=== PATIENT | female | born 1985 | race Caucasian/White ===

== ENCOUNTER 2020-07-24 15:49 | Emergency (ER) | payer OTHER ==
[2020-07-24] MEDS ORDERED: KEFLEX 500 MG PO ONE (16:19)
--- NOTE | 2020-07-24 16:21 | ERPHSYRPT ---
- History of Present Illness Time Seen by Provider: 07/24/20 16:10 Source: patient Exam Limitations: no limitations Patient Subjective Stated Complaint: rash Triage Nursing Assessment: Patient ambulated back to ED and transferred self to bed. Patient A+O X3. Patient's skin pink, warm and dry. Patient complains of an area to left ear that appeared two weeks ago that has spead to her face. Patient has dried cluster of discoloration to outer left ear. Patient also has small blister like areas to nose and underneath mouth. Patient complains of intermittent, aching pain 3/10. Physician History: 35 years old female presented in the ER with chief complaint of rash left ear lobule/external ear and around perioral area on the right. Patient reports it started as a small bump on the left ear and gradually increasing in size, watery discharge discharge upon removing the scab with some itching and burning sensation. She is also having some sharp pain in the left ear canal but no discharge from the ear itself. No sore throat/fever or chills reported. Timing/Duration: week(s) (2), gradual onset, worse Quality: burning, itchy Severity: moderate Location: face Possible Causes: no cause identified Associated Symptoms: rash, No fever, No headache, No nasal congestion, No sore throat, No swelling/mass/lumps Allergies/Adverse Reactions: No Known Drug Allergies Allergy (Unverified 07/24/20 15:55) Hx Tetanus, Diphtheria Vaccination/Date Given: Yes Hx Influenza Vaccination/Date Given: No Hx Pneumococcal Vaccination/Date Given: No Immunizations Up to Date: Yes Travel Risk - International Travel Have you traveled outside of the country in past 3 weeks: No - Coronavirus Screening Are you exhibiting any of the following symptoms?: No Close contact with a COVID-19 positive Pt in past 14-21 Days: No - Review of Systems Constitutional: No Symptoms Eyes: No Symptoms Ears, Nose, & Throat: Ear Pain Respiratory: No Symptoms Cardiac: No Symptoms Abdominal/Gastrointestinal: No Symptoms Musculoskeletal: No Symptoms Skin: Rash Neurological: No Symptoms Psychological: No Symptoms Endocrine: No Symptoms Hematologic/Lymphatic: No Symptoms Immunological/Allergic: No Symptoms - Past Medical History Pertinent Past Medical History: Yes Neurological History: No Pertinent History ENT History: No Pertinent History Cardiac History: No Pertinent History Respiratory History: No Pertinent History Endocrine Medical History: No Pertinent History Musculoskeletal History: No Pertinent History GI Medical History: No Pertinent History History: No Pertinent History Psycho-Social History: Anxiety, Depression Female Reproductive Disorders: No Pertinent History - Past Surgical History Past Surgical History: Yes Neuro Surgical History: No Pertinent History Cardiac: No Pertinent History Respiratory: No Pertinent History Gastrointestinal: No Pertinent History Genitourinary: No Pertinent History Musculoskeletal: No Pertinent History Female Surgical History: Tubal Ligation - Social History Smoking Status: Current every day smoker How long have you smoked: 18 Exposure to second hand smoke: No Drug Use: none Patient Lives Alone: No - Female History Hx Now: No - Nursing Vital Signs Nursing Vital Signs: Initial Vital Signs Temperature 98.0 F 07/24/20 15:57 Pulse Rate 72 07/24/20 15:57 Respiratory Rate 18 07/24/20 15:57 Blood Pressure 143/99 07/24/20 15:57 O2 Sat by Pulse Oximetry 99 07/24/20 15:57 Pain Scale Pain Intensity 3 - Physical Exam General Appearance: no apparent distress, alert Eye Exam: PERRL/EOMI, eyes nml inspection Ears, Nose, Throat Exam: TMs normal, pharynx normal, other (Left ear lobule area of erythema/erosion/connolly crusting. Also has areas around right perioral area especially on the lower lip.) Neck Exam: normal inspection, non-tender, supple, full range of motion Respiratory Exam: normal breath sounds, lungs clear Cardiovascular Exam: regular rate/rhythm, normal heart sounds Neurologic Exam: alert, oriented x 3 Skin Exam: normal color SpO2 Interpretation: normal SpO2: 95 O2 Delivery: Room Air - Course Nursing assessment & vital signs reviewed: Yes Ordered Tests: Medication Summary Discontinued Medications Generic Name Dose Route Start Last Admin Trade Name Trevor PRN Reason Stop Dose Admin Cephalexin HCl 500 mg 07/24/20 16:19 07/24/20 16:24 Keflex 500 Mg PO 07/24/20 16:20 500 mg STAT ONE Administration Cephalexin HCl Confirm 07/24/20 16:24 Keflex 500 Mg Administered 07/24/20 16:25 Dose 500 mg .ROUTE .STK-MED ONE Mupirocin 22 gm 07/24/20 22:00 07/24/20 16:37 Bactroban Ointment TP 08/23/20 21:59 22 gm TID MIKA Administration Mupirocin Confirm 07/24/20 16:30 Bactroban Ointment Administered 07/24/20 16:31 Dose 22 gm .ROUTE .STK-MED ONE - Progress Progress: unchanged Progress Note: 07/24/20 16:45 I believe patient has impetigo, will start on topical and oral antibiotics. Outpatient follow-up. Counseled pt/family regarding: diagnosis, need for follow-up - Departure Departure Disposition: Home Clinical Impression: Impetigo Condition: Stable Critical Care Time: No Referrals: ABELARDO KOCH [Primary Care Provider] - Follow Up with PCP/3 days Instructions: Impetigo (DC) Additional Instructions: Keep it clean. Apply topical antibiotic 3 times a day for 5 days. Follow-up with your primary care physician for reevaluation. Return to ED or for any worsening Prescriptions: Cephalexin Mh 500 mg [Keflex 500 mg] 500 mg PO QID #19 capsule
[2020-07-24] MEDS ORDERED: KEFLEX 500 MG ONE (16:24)
[2020-07-24] MEDS ORDERED: Bactroban OINTMENT ONE (16:30)
[2020-07-24 16:39] VITALS: BP 129/92; PULSE 60
[2020-07-24 16:45] VITALS: O2SAT 95
[2020-07-24] MEDS ORDERED: Bactroban OINTMENT TP SCH (22:00)
== END 2020-07-24 16:38 | disposition home or self-care (01) ==
LOC: ED 15:49
DX: L01.00 Impetigo, unspecified (principal)
CPT/HCPCS: 99283; A9270-GY

== ENCOUNTER 2022-05-30 18:53 | Emergency (ER) | payer OTHER ==
[2022-05-30 19:18] VITALS: O2SAT 94
[2022-05-30] MEDS ORDERED: CORTISPORIN EAR DROPS 10 ML SUSPENSION OT ONE ×2 (19:27→19:56)
--- NOTE | 2022-05-30 19:47 | ERPHSYRPT ---
- History of Present Illness Time Seen by Provider: 05/30/22 19:37 Source: patient Exam Limitations: no limitations Patient Subjective Stated Complaint: pt states three days ago she felt a soreness in left ear and its progressed to involving the entire neck on left side. pt states it has become swollen and sore. rates pain in neck at 7/10 Triage Nursing Assessment: pt is alert and oriented, redness and swelling noted in and around left ear, and swelling around mandible and upper neck on left side. pt states pain is 7/10. feels full in neck but no trouble breathing at this time. Physician History: Patient is a 36-year-old female who 3 days ago noticed pain in her left ear over the next 72 hours ears swollen completely shut she cannot hear she also has swelling onto the face and enlargement of lymph nodes in the left side of the neck. Timing/Duration: gradual onset Severity: moderate ENT Location: ear (L) Prearrival Treatment: no prearrival treatment Associated Symptoms: ear pain (L), jaw pain, swollen glands Allergies/Adverse Reactions: No Known Drug Allergies Allergy (Unverified 07/24/20 15:55) Hx Tetanus, Diphtheria Vaccination/Date Given: Yes Hx Influenza Vaccination/Date Given: No Hx Pneumococcal Vaccination/Date Given: No Travel Risk - International Travel Have you traveled outside of the country in past 3 weeks: No - Coronavirus Screening Are you exhibiting any of the following symptoms?: No Close contact with a COVID-19 positive Pt in past 14-21 Days: No - Vaccine Status Have you recieved a Covid-19 vaccination: No - Review of Systems Constitutional: No Fever, No Chills Eyes: No Symptoms Ears, Nose, & Throat: Ear Pain Respiratory: No Cough, No Dyspnea Cardiac: No Chest Pain, No Edema, No Syncope Abdominal/Gastrointestinal: No Abdominal Pain, No Nausea, No Vomiting, No Diarrhea Genitourinary Symptoms: No Dysuria Musculoskeletal: No Back Pain, No Neck Pain Skin: No Rash Neurological: No Dizziness, No Focal Weakness, No Sensory Changes Psychological: No Symptoms Endocrine: No Symptoms All Other Systems: Reviewed and Negative - Past Medical History Pertinent Past Medical History: Yes Neurological History: No Pertinent History ENT History: No Pertinent History Cardiac History: No Pertinent History Respiratory History: No Pertinent History Endocrine Medical History: No Pertinent History Musculoskeletal History: No Pertinent History GI Medical History: No Pertinent History History: No Pertinent History Psycho-Social History: Anxiety, Depression Female Reproductive Disorders: No Pertinent History - Past Surgical History Past Surgical History: Yes Neuro Surgical History: No Pertinent History Cardiac: No Pertinent History Respiratory: No Pertinent History Gastrointestinal: No Pertinent History Genitourinary: No Pertinent History Musculoskeletal: No Pertinent History Female Surgical History: Tubal Ligation - Social History Smoking Status: Current every day smoker How long have you smoked: 18 Exposure to second hand smoke: No Drug Use: none Patient Lives Alone: No - Female History Hx Last Menstrual Period: 05/23/22 Hx Now: No - Nursing Vital Signs Nursing Vital Signs: Initial Vital Signs Temperature 97.7 F 05/30/22 19:07 Pulse Rate 81 05/30/22 19:07 Respiratory Rate 18 05/30/22 19:07 Blood Pressure 149/85 05/30/22 19:07 O2 Sat by Pulse Oximetry 94 L 05/30/22 19:07 Pain Scale Pain Intensity 7 - Physical Exam General Appearance: mild distress Eye Exam: bilateral eye: PERRL, EOMI Ear Exam: left ear: discharge, swelling, tenderness, other (Left ear is remarkable for swelling of the external ear the canal is swollen nearly shut and there is discharge from the ear.) Nasal Exam: normal inspection Throat Exam: pharynx normal, moist mucus membranes, No tonsillar exudate Neck Exam: lymphadenopathy (L) Cardiovascular/Respiratory Exam: normal breath sounds, regular rate/rhythm Abdominal Exam: non-tender, soft Neurologic Exam: alert, oriented x 3, sensation nml, No motor deficits Skin Exam: normal color, warm, dry SpO2 Interpretation: normal SpO2: 94 O2 Delivery: Room Air - Course Nursing assessment & vital signs reviewed: Yes Ordered Tests: Medication Summary Discontinued Medications Generic Name Dose Route Start Last Admin Trade Name Freq PRN Reason Stop Dose Admin Neomycin/Polymyxin/Hydrocortisone Confirm 05/30/22 19:27 Neomy Sulf/Polymyx B Sulf/Hc 10 Ml Otic Suspension Administered 05/30/22 19:28 Dose 10 ml OT .STK-MED ONE - Progress Progress: unchanged Progress Note: 05/30/22 19:39 A wick was inserted into the left ear with minimal difficulty - Departure Departure Disposition: Home Clinical Impression: Otitis externa of left ear Condition: Stable Critical Care Time: No Referrals: ABELARDO KOCH NP [Primary Care Provider] - Follow up/PCP as directed Prescriptions: Hydrocodone/Acetaminophen [Hydrocodone-Acetamin 5-325 mg] 1 tab PO Q6HPRN PRN 3 Days #12 tablet MDD 4 PRN Reason: Pain Amox Tr/Potass Clav. 875 mg [Augmentin 875-125 Tablet] 875 mg PO BID 10 Days #20 tablet Jh/Baci/Poly/Hc Ear Susp [Cortisporin Ear Drops 10 ml Suspension] 10 ml OT TID #10 ml Prednisone 10 mg [Deltasone 10 mg] 40 mg PO Q12H 1 Days #8 tablet
[2022-05-30 20:09] VITALS: BP 133/100; PULSE 87
== END 2022-05-30 20:08 | disposition home or self-care (01) ==
LOC: ED 18:53
DX: H60.92 Unspecified otitis externa, left ear (principal); H92.02 Otalgia, left ear; R59.0 Localized enlarged lymph nodes; Z72.0 Tobacco use; Z79.891 Long term (current) use of opiate analgesic; Z79.52 Long term (current) use of systemic steroids; Z28.310 Unvaccinated for COVID-19
CPT/HCPCS: 99281; A9270-GY

== ENCOUNTER 2022-08-03 16:59 | Emergency (ER) | payer OTHER ==
[2022-08-03 18:06] VITALS: PULSE 83; O2SAT 98
[2022-08-03 18:42] LABS: Absolute Neutrophil Ct (ANC) 6.21 x10^3/uL (1.4-6.9); Basophil (Absolute #) 0.06 x10^3/uL (0-0.4); Eosinophil (Absolute #) 0.59 x10^3/uL (0-0.5); Hematocrit 31.3 % (35-47); Hemoglobin 9.3 g/dL (12.0-16.0); Lymphocyte (Absolute #) 2.26 x10^3/uL (1.0-4.6); Lymphocytes % 22.8 % (24.0-44.0); Mean Cell Volume 71.3 fL (78-100); Mean Corpuscular Hemoglobin 21.2 pg (26-32); Mean Corpuscular Hgb Concent. 29.7 g/dL (32-36); Mean Platelet Volume 8.7 fL (7.5-11.0); Monocytes % 7.1 % (0.0-12.0); Neutrophil % 62.7 % (36.0-66.0); Platelet Count 454 x10^3/uL (150-450); Red Blood Count 4.39 x10^6/uL (4.1-5.4); White Blood Count 9.9 x10^3/uL (4.0-10.5)
[2022-08-03 18:56] LABS: ALBUMIN 4.3 g/dL (3.5-5.0); ALKALINE PHOSPHATASE 73 U/L (38-126); ANION GAP 10.8 MEQ/L (5-15); BLOOD UREA NITROGEN 13 mg/dL (7-17); CHLORIDE 101 mmol/L (98-107); Calcium 9.2 mg/dL (8.4-10.2); Carbon Dioxide 28 mmol/L (22-30); Creatinine 1 0.54 mg/dL (0.52-1.04); EST GLOMERULAR FILTRATION RATE > 60.0 ML/MIN; Glucose 121 mg/dL (74-106); Potassium 3.3 mmol/L (3.5-5.1); SGOT/AST 36 U/L (14-36); SGPT/ALT 62 U/L (0-35); SODIUM 137 mmol/L (137-145); Total Protein 7.5 g/dL (6.3-8.2)
--- NOTE | 2022-08-03 19:15 | ERPHSYRPT ---
- History of Present Illness Time Seen by Provider: 08/03/22 18:00 Exam Limitations: no limitations Patient Subjective Stated Complaint: Pt has been seen several times in the past 4 months for a "rash" outside of her left ear and was told it was swimmers ear and then went to [facility] care and they did a culture and they think they may not have went deep enough and it came back as "normal sam" and so they just gave her some cream, pt is itching like crazy and it has now gotten to the right ear and she thinks it is spreading to her left underarm Triage Nursing Assessment: Pt brought to the ER by her , rates pain and itching as 6/10, states that her had shingles and so she is not sure if maybe it is that and she infected him or not, unable to sleep due to the itching, itches way inside the ear as well as outside the ear and down her neck, red rashy and scabby Physician History: Patient is a 37-year-old female presents to emergency department for evaluation of the itchy rash to her left ear. Patient was seen couple weeks ago for the same she was diagnosed with swimmer's ear. Patient was treated with an antibiotic eardrop which did not resolve her symptoms. Patient followed up with her primary care doctor. They cultured the ear drainage. The result was normal sam. Patient is frustrated as her symptoms are continuing. Patient that she was recently diagnosed with diabetes. She has not had blood work done. Patient describes pruritic rash at her left ear. Patient concerned that this rash may be shingles. No fever. No rash otherwise. No numbness tingling or weakness. No chest pain or shortness of breath. Symptoms are mild to moderate in intensity. No specific worsening improving factors. Patient denies a history of the same. She voices no other complaints or concerns at this time. Timing/Duration: today Severity: moderate Modifying Factors: Improves With: nothing Associated Symptoms: denies symptoms Allergies/Adverse Reactions: No Known Drug Allergies Allergy (Verified 08/03/22 18:06) Home Medications: Buprenorphine HCl/Naloxone HCl [Buprenorphn-Naloxn 2-0.5 mg Sl] 1 each SL UD 08/03/22 [History] Clonidine HCl 0.1 mg [Clonidine 0.1 mg Tablet] 0.2 mg PO DAILY 08/03/22 [History] Gabapentin 600 mg PO TID 08/03/22 [History] Quetiapine Fumarate [Seroquel] 400 mg PO DAILY 08/03/22 [History] Ropinirole 2Mg [Requip 2Mg Tab] 2 mg PO HS 08/03/22 [History] Hx Tetanus, Diphtheria Vaccination/Date Given: Yes Hx Influenza Vaccination/Date Given: No Hx Pneumococcal Vaccination/Date Given: No Travel Risk - International Travel Have you traveled outside of the country in past 3 weeks: No - Coronavirus Screening Are you exhibiting any of the following symptoms?: No Close contact with a COVID-19 positive Pt in past 14-21 Days: No - Vaccine Status Have you recieved a Covid-19 vaccination: No - Review of Systems Constitutional: No Symptoms, No Fever, No Chills Eyes: No Symptoms Ears, Nose, & Throat: No Symptoms Respiratory: No Symptoms, No Cough, No Dyspnea Cardiac: No Symptoms, No Chest Pain, No Edema, No Syncope Abdominal/Gastrointestinal: No Symptoms, No Abdominal Pain, No Nausea, No Vomiting, No Diarrhea Genitourinary Symptoms: No Symptoms, No Dysuria Musculoskeletal: No Symptoms, No Back Pain, No Neck Pain Skin: No Symptoms, No Rash Neurological: No Symptoms, No Dizziness, No Focal Weakness, No Sensory Changes Psychological: No Symptoms Endocrine: No Symptoms Hematologic/Lymphatic: No Symptoms Immunological/Allergic: No Symptoms All Other Systems: Reviewed and Negative - Past Medical History Pertinent Past Medical History: Yes Neurological History: No Pertinent History ENT History: No Pertinent History Cardiac History: No Pertinent History Respiratory History: No Pertinent History Endocrine Medical History: No Pertinent History Musculoskeletal History: No Pertinent History GI Medical History: No Pertinent History History: No Pertinent History Psycho-Social History: Anxiety, Depression, Other Female Reproductive Disorders: No Pertinent History Other Medical History: PTSD - Past Surgical History Past Surgical History: Yes Neuro Surgical History: No Pertinent History Cardiac: No Pertinent History Respiratory: No Pertinent History Gastrointestinal: No Pertinent History Genitourinary: No Pertinent History Musculoskeletal: No Pertinent History Female Surgical History: Tubal Ligation - Social History Smoking Status: Current every day smoker How long have you smoked: 18 Exposure to second hand smoke: Yes Drug Use: none Patient Lives Alone: No - Female History Hx Now: No (tubal) - Nursing Vital Signs Nursing Vital Signs: Initial Vital Signs Temperature 97.6 F 08/03/22 17:54 Pulse Rate 83 08/03/22 17:54 Blood Pressure 121/87 08/03/22 17:54 O2 Sat by Pulse Oximetry 98 08/03/22 17:54 Pain Scale Pain Intensity 6 - Physical Exam General Appearance: no apparent distress, alert Eye Exam: PERRL/EOMI, eyes nml inspection Ears, Nose, Throat Exam: normal ENT inspection, TMs normal, pharynx normal, moist mucous membranes, other (Patient appears to have a tinea infection at the left earlobe. Antifungal cream applied. ) Neck Exam: normal inspection, non-tender, supple, full range of motion Respiratory Exam: normal breath sounds, lungs clear, airway intact, No respiratory distress Cardiovascular Exam: regular rate/rhythm, normal heart sounds, normal peripheral pulses Gastrointestinal/Abdomen Exam: soft, normal bowel sounds, No tenderness, No mass Back Exam: normal inspection, normal range of motion, No CVA tenderness, No vertebral tenderness Extremity Exam: normal inspection, normal range of motion, pelvis stable Neurologic Exam: alert, oriented x 3, cooperative, normal mood/affect, nml cerebellar function, nml station & gait, sensation nml, No motor deficits Skin Exam: normal color, warm, dry, No rash Lymphatic Exam: No adenopathy SpO2 Interpretation: normal SpO2: 98 O2 Delivery: Room Air - Course Nursing assessment & vital signs reviewed: Yes Ordered Tests: Active Orders 24 hr Category Date Time Status CBC W DIFF Stat Lab 08/03/22 18:40 Completed CMP Stat Lab 08/03/22 18:40 Completed Medication Summary Generic Name Dose Route Start Last Admin Trade Name Freq PRN Reason Stop Dose Admin Alprazolam 0.25 mg 08/03/22 20:34 Alprazolam 0.25 Mg Tablet PO 08/03/22 20:35 STAT ONE Discontinued Medications Generic Name Dose Route Start Last Admin Trade Name Freq PRN Reason Stop Dose Admin Diphenhydramine HCl 25 mg 08/03/22 19:45 08/03/22 20:11 Diphenhydramine Hcl 50 Mg/Ml Vial IM 08/03/22 19:46 Not Given STAT ONE Diphenhydramine HCl Confirm 08/03/22 20:02 Diphenhydramine Hcl 50 Mg/Ml Vial Administered 08/03/22 20:03 Dose 50 mg .ROUTE .STK-MED ONE Fluconazole 150 mg 08/03/22 19:26 08/03/22 20:03 Fluconazole 150 Mg Tablet PO 08/03/22 19:27 150 mg ONCE STA Administration Fluconazole Confirm 08/03/22 19:40 Fluconazole 100 Mg Tablet Administered 08/03/22 19:41 Dose 200 mg .ROUTE .STK-MED ONE Miconazole Nitrate 6.5 gm 08/03/22 19:46 08/03/22 20:03 Miconazole Nitrate 45 Gm Cream.Appl TOP 08/03/22 19:47 6.5 gm ONCE STA Administration Lab/Rad Data: Laboratory Result Diagrams 08/03/22 18:40 08/03/22 18:40 Laboratory Results 08/03/22 08/03/22 08/03/22 Range/Units 18:40 18:40 18:40 WBC 9.9 (4.0-10.5) x10^3/uL RBC 4.39 (4.1-5.4) x10^6/uL Hgb 9.3 L (12.0-16.0) g/dL Hct 31.3 L (35-47) % MCV 71.3 L (78-100) fL MCH 21.2 L (26-32) pg MCHC 29.7 L (32-36) g/dL RDW 17.0 H (11.5-14.0) % Plt Count 454 H (150-450) x10^3/uL MPV 8.7 (7.5-11.0) fL Gran % 62.7 (36.0-66.0) % Immature Gran % (Auto) 0.8 H (0.00-0.4) % Nucleat RBC Rel Count 0.0 (0.00-0.1) % Eos # (Auto) 0.59 H (0-0.5) x10^3/uL Immature Gran # (Auto) 0.08 H (0.00-0.03) x10^3u/L Absolute Lymphs (auto) 2.26 (1.0-4.6) x10^3/uL Absolute Monos (auto) 0.70 (0.0-1.3) x10^3/uL Absolute Nucleated RBC 0.00 (0.00-0.01) x10^3u/L Lymphocytes % 22.8 L (24.0-44.0) % Monocytes % 7.1 (0.0-12.0) % Eosinophils % 6.0 H (0.00-5.0) % Basophils % 0.6 (0.0-0.4) % Absolute Granulocytes 6.21 (1.4-6.9) x10^3/uL Basophils # 0.06 (0-0.4) x10^3/uL Sodium 137 (137-145) mmol/L Potassium 3.3 L (3.5-5.1) mmol/L Chloride 101 (98-107) mmol/L Carbon Dioxide 28 (22-30) mmol/L Anion Gap 10.8 (5-15) MEQ/L BUN 13 (7-17) mg/dL Creatinine 0.54 (0.52-1.04) mg/dL Estimated GFR > 60.0 ML/MIN Glucose 121 H (74-106) mg/dL Hemoglobin A1c 6.43 H (4.5-6.0) % Calcium 9.2 (8.4-10.2) mg/dL Total Bilirubin 0.40 (0.2-1.3) mg/dL AST 36 (14-36) U/L ALT 62 H (0-35) U/L Alkaline Phosphatase 73 (38-126) U/L Serum Total Protein 7.5 (6.3-8.2) g/dL Albumin 4.3 (3.5-5.0) g/dL - Progress Progress: improved Progress Note: Patient reassessed. She feels better. Patient refused Benadryl for itching. Patient declined steroid as she has diabetic. Patient requesting Xanax for home. 0.25 Xanax given to patient here to allow her to relax and hopefully sleep. Patient has been through several courses of antibiotics none of which helped her symptoms. Patient agrees to follow-up with her primary care doctor within 48 hours for reevaluation. Portions of this note were created with voice recognition technology. There may be grammatical, spelling, punctuation or sound alike errors 08/03/22 20:37 Laboratory work-up confirms patient is diabetic. Mild hyperglycemia. Potassium 3.3. Oral potassium replaced. Patient voices no other complaints or concerns at this time. She agrees to follow-up with her primary care doctor within 48 hours for evaluation. Portions of this note were created with voice recognition technology. There may be grammatical, spelling, punctuation or sound alike errors 08/03/22 20:39 Counseled pt/family regarding: lab results, diagnosis, need for follow-up - Departure Departure Disposition: Home Clinical Impression: Microcytic anemia, Otitis externa of left ear, Hypokalemia, Thrombocytosis, Tinea Condition: Stable Critical Care Time: No Referrals: ABELARDO KOCH NP [Primary Care Provider] - Follow up/PCP as directed Instructions: Hypokalemia, Ear Infections (Otitis Media) in Adults (DC) Additional Instructions: Discharge/Care Plan GRACIELA GUSTAFSON GERDA was seen on 08/03/22 in the Emergency Room. The patient was counseled regarding Diagnosis,Lab results, Imaging studies, need for follow up and when to return to the Emergency Room. Prescriptions given: Discharge Note I have spoken with the patient and/or caregivers. I have explained the patient's condition, diagnosis and treatment plan based on the information available to me at this time. I have answered the patient's and/or caregiver's questions and addressed any concerns. The patient and/or caregivers have as good understanding of the patient's diagnosis, condition and treatment plan as can be expected at this point. The vital signs have been stable. The patient's condition is stable and appropriate for discharge from the emergency department. The patient will pursue further outpatient evaluation with the primary care physician or other designated or consulting physician as outlined in the discharge instructions. The patient and/or caregivers are agreeable to this plan of care and follow-up instructions have been explained in detail. The patient and/or caregivers have received these instruction. The patient/and or caregivers are aware that any significant change in condition or worsening of symptoms should prompt an immediate return to this or the closest emergency department or call 911.
[2022-08-03] MEDS ORDERED: DIFLUCAN PO STA (19:26)
[2022-08-03 19:30] VITALS: BP 120/76
[2022-08-03] MEDS ORDERED: Diflucan 100 MG ONE (19:40)
[2022-08-03] MEDS ORDERED: Monistat 7 TOP STA (19:46)
[2022-08-03] MEDS ORDERED: BENADRYL 50 MG/ML ONE (20:02)
[2022-08-03] MEDS: BENADRYL 50 MG/ML IM ONE ×2 (20:04→20:11)
[2022-08-03] MEDS ORDERED: xanAX 0.25 MG PO ONE (20:34)
[2022-08-03] MEDS ORDERED: xanAX 0.25 MG ONE (20:37)
[2022-08-03] MEDS ORDERED: Klor Con PO ONE ×2 (20:39→20:41)
== END 2022-08-03 20:48 | disposition home or self-care (01) ==
LOC: ED 16:59
DX: D50.9 Iron deficiency anemia, unspecified (principal); H60.92 Unspecified otitis externa, left ear; E87.6 Hypokalemia; D75.839 Thrombocytosis, unspecified; B35.9 Dermatophytosis, unspecified; E11.65 Type 2 diabetes mellitus with hyperglycemia; Z72.0 Tobacco use; Z79.891 Long term (current) use of opiate analgesic; Z79.899 Other long term (current) drug therapy; Z28.310 Unvaccinated for COVID-19
CPT/HCPCS: 36415; 80053; 83036; 85025; 99283; J1200; A9270-GY

== ENCOUNTER 2024-07-02 17:10 | Emergency (ER) | payer OTHER ==
[2024-07-02 17:18] VITALS: TEMP 97.1
[2024-07-02] MEDS ORDERED: Magnesium Sulfate 1 GM/2 ML VIAL IV ONE (17:46)
[2024-07-02 18:01] LABS: Absolute Neutrophil Ct (ANC) 10.32 x10^3/uL (1.56-6.13); BASOPHIL % 0.3 % (0.1-1.2); Basophil (Absolute #) 0.04 x10^3/uL (0.01-0.08); Eosinophil % 1.6 % (0.7-5.8); IMMATURE GRAN % 0.8 % (0.001-0.429); Lymphocyte (Absolute #) 1.25 x10^3/uL (1.18-3.74); Lymphocytes % 9.9 % (19.3-51.7); Mean Cell Volume 60.7 fL (79.4-94.8); Mean Corpuscular Hemoglobin 16.4 pg (25.6-32.2); Mean Platelet Volume 9.4 fL (9.4-12.3); Monocytes % 5.6 % (4.7-12.5); NUCLEATED RBC # 0.02 x10^3u/L (0.00-0.012); NUCLEATED RBC % 0.2 % (0.00-0.2); Neutrophil % 81.8 % (34.0-71.1); Platelet Count 401 x10^3/uL (182-369); Red Blood Count 3.79 x10^6/uL (3.93-5.22); Red Cell Distribution Width 19.9 % (11.7-14.4); White Blood Count 12.6 x10^3/uL (3.98-10.04)
[2024-07-02 18:05] LABS: Hemoglobin 6.2 g/dL (11.2-15.7)
[2024-07-02] MEDS ORDERED: Sterile H2O 10 ml IJ ONE (18:09)
[2024-07-02] MEDS ORDERED: Sodium Chloride 0.9% 1000 ML 1,000 ML ONE (18:09)
[2024-07-02] MEDS ORDERED: solu-MEDROL ONE (18:09)
[2024-07-02] MEDS ORDERED: ROCEPHIN 1 GM / 100 ML NaCl 1 GM/100 ML IVPB IV ONE (18:09)
[2024-07-02] MEDS: Sodium Chloride 0.9% 1000 ML 1,000 ML IV STA (18:12)
[2024-07-02 18:14] LABS: ALBUMIN 3.9 g/dL (3.5-5.0); ANION GAP 12.4 MEQ/L (5-15); BILIRUBIN,TOTAL 0.6 mg/dL (0.2-1.3); Calcium 9.2 mg/dL (8.4-10.2); Creatinine 1 0.63 mg/dL (0.52-1.04); EST GLOMERULAR FILTRATION RATE 114.2 ML/MIN; Potassium 3.4 mmol/L (3.5-5.1); Total Protein 7.5 g/dL (6.3-8.2)
[2024-07-02] MEDS: ROCEPHIN 1 GM / 100 ML NaCl 1 GM/100 ML IVPB IV ONE (18:16)
[2024-07-02] MEDS ORDERED: DUONEB 0.5-3 MG/3 ml Neb IH ONE (18:21)
[2024-07-02] MEDS: DUONEB 0.5-3 MG/3 ml Neb IH ONE (18:23)
[2024-07-02] MEDS ORDERED: Zofran 4 MG/2 ML VIAL ONE (18:24)
[2024-07-02] MEDS: solu-MEDROL 125 MG, Sterile H2O 10 ml 2 ML IV ONE (18:25)
[2024-07-02] MEDS: Zofran 4 MG/2 ML VIAL IV ONE (18:25)
[2024-07-02 18:38] LABS: INFLUENZA A NEGATIVE (NEGATIVE); INFLUENZA B NEGATIVE (NEGATIVE); RESPIRATORY SYNCTIAL VIRUS NEGATIVE (NEGATIVE); SARS-CoV-2 Xpert Express NEGATIVE (NEGATIVE)
[2024-07-02] MEDS ORDERED: Zithromax 500 MG/ 250 ML NaCl Premix 500 MG/250 ML IVPB IV ONE (19:03)
[2024-07-02] MEDS: Zithromax 500 MG/ 250 ML NaCl Premix 500 MG/250 ML IVPB IV STA (19:04)
[2024-07-02 19:10] LABS: Slide Review 1 YES
--- NOTE | 2024-07-02 19:31 | ERPHSYRPT ---
- History of Present Illness Source: patient Exam Limitations: clinical condition Patient Subjective Stated Complaint: PT states "I have been short of breath for the past couple of days and I can barely walk very far and get to short of breath. I also have this odd rash on my feet and face." Triage Nursing Assessment: Pt presented alert and oriented X 3, skin pwd. Pt am bulates with an upright slow gait, able to speak in clear full sentences. Pt tachypneic and stated she feel better when placed on 2 lpm nasal canula O2 Timing/Duration: today Severity: mild Modifying Factors: Improves With: movement Associated Symptoms: nausea Hx Tetanus, Diphtheria Vaccination/Date Given: Yes Hx Influenza Vaccination/Date Given: No Hx Pneumococcal Vaccination/Date Given: No Immunizations Up to Date: No <LAYTON CARTER - Last Filed: 07/02/24 19:27> <FRANK PROCTOR - Last Filed: 07/02/24 21:11> - History of Present Illness Time Seen by Provider: 07/02/24 18:00 Allergies/Adverse Reactions: No Known Drug Allergies Allergy (Verified 08/03/22 18:06) Home Medications: Buprenorphine HCl/Naloxone HCl [Buprenorphn-Naloxn 2-0.5 mg Sl] 1 each SL UD 08/03/22 [History] Gabapentin 600 mg PO TID 08/03/22 [History] Quetiapine Fumarate [Seroquel] 400 mg PO DAILY 08/03/22 [History] Ropinirole 2Mg [Requip 2Mg Tab] 2 mg PO HS 08/03/22 [History] Sertraline HCl [Zoloft] 100 mg PO DAILY 07/02/24 [History] Travel Risk - International Travel Have you traveled outside of the country in past 3 weeks: No - Emerging Infectious Disease Are you exhibiting symptoms associated with any current EIDs: Yes Symptoms: Cough: New Onset, Shortness of Breath <LAYTON CARTER - Last Filed: 07/02/24 19:27> - Review of Systems Constitutional: No Symptoms Eyes: No Symptoms Ears, Nose, & Throat: No Symptoms Respiratory: Dyspnea on Exertion (WELCH), Wheezing Abdominal/Gastrointestinal: No Symptoms Genitourinary Symptoms: No Symptoms Musculoskeletal: No Symptoms <LAYTON CARTER - Last Filed: 07/02/24 19:27> - Past Medical History Pertinent Past Medical History: Yes Neurological History: No Pertinent History ENT History: No Pertinent History Cardiac History: No Pertinent History Respiratory History: No Pertinent History Endocrine Medical History: No Pertinent History Musculoskeletal History: No Pertinent History GI Medical History: No Pertinent History History: No Pertinent History Psycho-Social History: Anxiety, Depression, Other Female Reproductive Disorders: No Pertinent History Other Medical History: PTSD - Past Surgical History Past Surgical History: Yes Neuro Surgical History: No Pertinent History Cardiac: No Pertinent History Respiratory: No Pertinent History Gastrointestinal: No Pertinent History Genitourinary: No Pertinent History Musculoskeletal: No Pertinent History Female Surgical History: Tubal Ligation - Female History Hx Last Menstrual Period: 06/07/2024 Hx Now: No - Social History Smoking Status: Current every day smoker How long have you smoked: 18 Exposure to second hand smoke: Yes Drug Use: marijuana Patient Lives Alone: No - Social Determinants of Health Will the patient participate in the screening: Yes Do you worry about a steady place to live?: No Do you have any problems with any of the following?: No known problems In the past 12 months,have you had to go without utilities?: No Transportation Issues: No Has anyone in your support network made you feel unsafe?: No Have you or anyone in your house had to go without enough: No <LAYTON CARTER - Last Filed: 07/02/24 19:27> - Physical Exam General Appearance: no apparent distress Eye Exam: PERRL/EOMI Ears, Nose, Throat Exam: normal ENT inspection Respiratory Exam: wheezing Cardiovascular Exam: regular rate/rhythm Gastrointestinal/Abdomen Exam: soft, normal bowel sounds Extremity Exam: other (rsh noted on hands and feet) Neurologic Exam: alert, oriented x 3 SpO2: 93 <LAYTON CARTER - Last Filed: 07/02/24 19:27> - Nursing Vital Signs Nursing Vital Signs: Initial Vital Signs Temperature 97.1 F 07/02/24 17:11 Pulse Rate 101 H 07/02/24 17:11 Respiratory Rate 24 07/02/24 17:11 Blood Pressure 133/92 07/02/24 17:11 O2 Sat by Pulse Oximetry 88 L 07/02/24 17:11 Pain Scale Pain Intensity 0 - Course Nursing assessment & vital signs reviewed: Yes <ERICK,FRANK - Last Filed: 07/02/24 21:11> Ordered Tests: Active Orders 24 hr Category Date Time Status AMA [Release AMA] OM.NOW Care 07/02/24 21:05 Active Oxygen-ED Only Nasal Cannula 2 lpm Care 07/02/24 17:31 Active CTA ABD/PEL W AND/OR W/O CONTR [CT] Stat Exams 07/02/24 19:26 Taken CTA CHEST W AND/OR WO [CT] Stat Exams 07/02/24 19:26 Taken BLOOD CULTURE Stat Lab 07/02/24 20:15 Received CBC W DIFF Stat Lab 07/02/24 17:54 Completed CMP Stat Lab 07/02/24 17:54 Completed HCG QUALITATIVE, URINE Stat Lab 07/02/24 19:48 Completed MAGNESIUM Stat Lab 07/02/24 17:54 Completed NT PRO BNPII Stat Lab 07/02/24 17:54 Completed Respiratory Therapy Assessment DAILY RT 07/02/24 18:26 Active Medication Summary Discontinued Medications Generic Name Dose Route Start Last Admin Trade Name Freq PRN Reason Stop Dose Admin Albuterol/Ipratropium 3 ml 07/02/24 17:32 07/02/24 18:23 Ipratropium/Albuterol Sulfate 3 Ml Ampul.Neb IH 07/02/24 17:33 3 ml STAT ONE Administration Albuterol/Ipratropium Confirm 07/02/24 18:21 Ipratropium/Albuterol Sulfate 3 Ml Ampul.Neb Administered 07/02/24 18:22 Dose 3 ml IH .STK-MED ONE Methylprednisolone Sodium 0 mg 07/02/24 17:32 07/02/24 18:25 Succinate 125 mg/ Sterile IV 07/02/24 17:33 125 mg Water 2 ml STAT ONE Administration Sodium Chloride 1,000 mls @ 999 mls/hr 07/02/24 17:31 07/02/24 18:12 Sodium Chloride 0.9% 1000 Ml IV 07/02/24 18:31 999 mls/hr .Q1H1M STA Administration Azithromycin 500 mg in 250 mls @ 250 mls/hr 07/02/24 17:31 07/02/24 19:04 Zithromax 500 Mg/ 250 Ml Nacl Premix IV 07/02/24 18:30 250 ml/hr STAT STA 250 mls/hr Administration Ceftriaxone Sodium 1 gm in 100 mls @ 200 mls/hr 07/02/24 17:31 07/02/24 18:51 Rocephin 1 Gm / 100 Ml Nacl IV 07/02/24 18:00 Infused STAT ONE Infusion Sodium Chloride Confirm 07/02/24 18:09 Sodium Chloride 0.9% 1000 Ml Administered 07/02/24 18:10 Dose 1,000 mls @ ud .ROUTE .STK-MED ONE Ceftriaxone Sodium Confirm 07/02/24 18:09 Rocephin 1 Gm / 100 Ml Nacl Administered 07/02/24 18:10 Dose 1 gm in 100 mls @ ud IV .STK-MED ONE Azithromycin Confirm 07/02/24 19:03 Zithromax 500 Mg/ 250 Ml Nacl Premix Administered 07/02/24 19:04 Dose 500 mg in 250 mls @ ud IV .STK-MED ONE Magnesium Sulfate 1 gm 07/02/24 17:46 Magnesium Sulfate Injection IV 07/02/24 17:47 ONCE ONE Methylprednisolone Sodium Succinate Confirm 07/02/24 18:09 Methylprednis Sod Succ 125 Mg/2 Ml Vial Administered 07/02/24 18:10 Dose 125 mg .ROUTE .STK-MED ONE Ondansetron HCl 4 mg 07/02/24 18:23 07/02/24 18:25 Ondansetron Hcl 4 Mg/2 Ml Vial IV 07/02/24 18:24 4 mg STAT ONE Administration Ondansetron HCl Confirm 07/02/24 18:24 Ondansetron Hcl 4 Mg/2 Ml Vial Administered 07/02/24 18:25 Dose 4 mg .ROUTE .STK-MED ONE Sterile Water Confirm 07/02/24 18:09 Water For Injection,Sterile 10 Ml Vial Administered 07/02/24 18:10 Dose 10 ml IJ .STK-MED ONE Lab/Rad Data: Laboratory Result Diagrams 07/02/24 17:54 07/02/24 17:54 Laboratory Results 07/02/24 07/02/24 07/02/24 Range/Units 19:48 17:56 17:54 WBC (3.98-10.04) x10^3/uL RBC (3.93-5.22) x10^6/uL Hgb (11.2-15.7) g/dL Hct (34.1-44.9) % MCV (79.4-94.8) fL MCH (25.6-32.2) pg MCHC (32.2-35.5) g/dL RDW (11.7-14.4) % Plt Count (182-369) x10^3/uL MPV (9.4-12.3) fL Gran % (34.0-71.1) % Immature Gran % (Auto) (0.001-0.429) % Nucleat RBC Rel Count (0.00-0.2) % Eos # (Auto) (0.04-0.36) x10^3/uL Immature Gran # (Auto) (0.001-0.031) x10^3u/L Absolute Lymphs (auto) (1.18-3.74) x10^3/uL Absolute Monos (auto) (0.24-0.86) x10^3/uL Absolute Nucleated RBC (0.00-0.012) x10^3u/L Lymphocytes % (19.3-51.7) % Monocytes % (4.7-12.5) % Eosinophils % (0.7-5.8) % Basophils % (0.1-1.2) % Absolute Granulocytes (1.56-6.13) x10^3/uL Basophils # (0.01-0.08) x10^3/uL Sodium (135-145) mmol/L Potassium (3.5-5.1) mmol/L Chloride (98-107) mmol/L Carbon Dioxide (22-30) mmol/L Anion Gap (5-15) MEQ/L BUN (7-17) mg/dL Creatinine (0.52-1.04) mg/dL Estimated GFR ML/MIN Glucose (74-106) mg/dL Calcium (8.4-10.2) mg/dL Magnesium (1.6-2.3) mg/dL Total Bilirubin (0.2-1.3) mg/dL AST (14-36) U/L ALT (0-35) U/L Alkaline Phosphatase (38-126) U/L NT-Pro-B Natriuret Pep 5110 (<300) pg/mL Serum Total Protein (6.3-8.2) g/dL Albumin (3.5-5.0) g/dL Urine HCG, Qual NEGATIVE (NEGATIVE) Influenza Type A Ag NEGATIVE (NEGATIVE) Influenza Type B Ag NEGATIVE (NEGATIVE) RSV (PCR) NEGATIVE (NEGATIVE) SARS-CoV-2 (PCR) NEGATIVE (NEGATIVE) Slides for Path Review 07/02/24 07/02/24 Range/Units 17:54 17:54 WBC 12.6 H (3.98-10.04) x10^3/uL RBC 3.79 L (3.93-5.22) x10^6/uL Hgb 6.2 L* (11.2-15.7) g/dL Hct 23.0 L (34.1-44.9) % MCV 60.7 L (79.4-94.8) fL MCH 16.4 L (25.6-32.2) pg MCHC 27.0 L (32.2-35.5) g/dL RDW 19.9 H (11.7-14.4) % Plt Count 401 H (182-369) x10^3/uL MPV 9.4 (9.4-12.3) fL Gran % 81.8 H (34.0-71.1) % Immature Gran % (Auto) 0.8 H (0.001-0.429) % Nucleat RBC Rel Count 0.2 (0.00-0.2) % Eos # (Auto) 0.20 (0.04-0.36) x10^3/uL Immature Gran # (Auto) 0.10 H (0.001-0.031) x10^3u/L Absolute Lymphs (auto) 1.25 (1.18-3.74) x10^3/uL Absolute Monos (auto) 0.70 (0.24-0.86) x10^3/uL Absolute Nucleated RBC 0.02 H (0.00-0.012) x10^3u/L Lymphocytes % 9.9 L (19.3-51.7) % Monocytes % 5.6 (4.7-12.5) % Eosinophils % 1.6 (0.7-5.8) % Basophils % 0.3 (0.1-1.2) % Absolute Granulocytes 10.32 H (1.56-6.13) x10^3/uL Basophils # 0.04 (0.01-0.08) x10^3/uL Sodium 135 (135-145) mmol/L Potassium 3.4 L (3.5-5.1) mmol/L Chloride 99 (98-107) mmol/L Carbon Dioxide 26 (22-30) mmol/L Anion Gap 12.4 (5-15) MEQ/L BUN 8 (7-17) mg/dL Creatinine 0.63 (0.52-1.04) mg/dL Estimated GFR 114.2 ML/MIN Glucose 124 H (74-106) mg/dL Calcium 9.2 (8.4-10.2) mg/dL Magnesium 2.0 (1.6-2.3) mg/dL Total Bilirubin 0.60 (0.2-1.3) mg/dL AST 29 (14-36) U/L ALT 25 (0-35) U/L Alkaline Phosphatase 89 (38-126) U/L NT-Pro-B Natriuret Pep (<300) pg/mL Serum Total Protein 7.5 (6.3-8.2) g/dL Albumin 3.9 (3.5-5.0) g/dL Urine HCG, Qual (NEGATIVE) Influenza Type A Ag (NEGATIVE) Influenza Type B Ag (NEGATIVE) RSV (PCR) (NEGATIVE) SARS-CoV-2 (PCR) (NEGATIVE) Slides for Path Review YES <LAYTON CARTER - Last Filed: 07/02/24 19:27> - Progress Counseled pt/family regarding: diagnosis, need for follow-up, rad results <FRANK PROCTOR - Last Filed: 07/02/24 21:11> - Progress Progress Note: patient was seen and evaluated for shortness of breath she was examined and noted to have wheezing she was given a DuoNeb Solu-Medrol and labs and CT of the chest abdomen pelvis was ordered CT chest abdomen pelvis was ordered care of this patient is transferred to Dr. Proctorat 730 pm results pending and patient will need admission 07/02/24 19:28 (LAYTON CARTER) Patient endorsed to Dr. Proctor at approximately 7:30 PM. It was known that patient has a profound symptomatic anemia. CT scans ordered to further workup sources of possible blood loss. CT scan reports pending. Patient is a 39-year-old female presents to our ED for evaluation of shortness of breath. Workup reveals a profound microcytic anemia of 6.2. Patient requires a blood transfusion. Patient advised of the plan of care at this point. CT scans ordered by previous physician are pending. Patient reports that she cannot stay for blood transfusion. Patient has children at home. Patient states that she has obligations to take care of before admission. Patient states she will go home and return in the morning. Patient is of sound mind. Patient is appropriate to make informed and independent medical decisions. Patient understands that leaving AGAINST MEDICAL ADVICE can result in delayed diagnosis, increased risk of morbidity, mortality, short and long-term disability including . In spite of these risks, patient has decided to leave AGAINST MEDICAL ADVICE. Patient understands that she may return to our ED at any point if she reconsiders. Patient agrees to follow-up with her primary care doctor within 48 hours for reevaluation. Patient voices no other complaints or concerns at this time. We will release patient AGAINST MEDICAL ADVICE per their request. CT scan reports are pending. Patient has decided to leave AMA. Complexity of problem addressed is moderate acute complicated. No critical care time. Complexity data reviewed and analyzed is moderate. Test ordered test reviewed results analyzed and correlated clinically with history and physical exam. Risk of complication and or risk of morbidity/mortality of patient management is high. Patient requires hospitalization for further evaluation and treatment however patient declined that she has obligations to attend to and wi ll be leaving AGAINST MEDICAL ADVICE. Vitals stable. Time spent to discharge patient approximately 30 minutes. After extensive and extended discussion with patient and her significant other james t has decided to leave AGAINST MEDICAL ADVICE against the wish of her family member and recommendations of Dr. Proctor. Patient states she will return in the morning after sending her kids off from school. No social determinants of health present to impede follow-up. Portions of this note were created with voice recognition technology. There may be grammatical, spelling, punctuation or sound alike errors 07/02/24 21:06 (FRANK PROCTOR) - Departure Departure Disposition: Observation Critical Care Time: Yes Critical Care Time(excluding separately billable procedures): Critical 30-74 mins <LAYTON CARTER - Last Filed: 07/02/24 19:27> - Departure Departure Disposition: AMA <FRANK PROCTOR - Last Filed: 07/02/24 21:11> - Departure Clinical Impression: Acute dyspnea, Symptomatic anemia, Microcytic anemia, Elevated brain natriuretic peptide (BNP) level Condition: Good Referrals: ABELARDO KOCH NP [Primary Care Provider] - Follow up/PCP as directed Additional Instructions: Discharge/Care Plan GRACIELA GUSTAFSON GERDA was seen on 07/02/24 in the Emergency Room. The patient was counseled regarding Diagnosis,Lab results, Imaging studies, need for follow up and when to return to the Emergency Room. Prescriptions given: Discharge Note I have spoken with the patient and/or caregivers. I have explained the patient's condition, diagnosis and treatment plan based on the information available to me at this time. I have answered the patient's and/or caregiver's questions and addressed any concerns. The patient and/or caregivers have as good understanding of the patient's diagnosis, condition and treatment plan as can be expected at this point. The vital signs have been stable. The patient's condition is stable and appropriate for discharge from the emergency department. The patient will pursue further outpatient evaluation with the primary care physician or other designated or consulting physician as outlined in the discharge instructions. The patient and/or caregivers are agreeable to this plan of care and follow-up instructions have been explained in detail. The patient and/or caregivers have received these instruction. The patient/and or caregivers are aware that any significant change in condition or worsening of symptoms should prompt an immediate return to this or the closest emergency department or call 911.
[2024-07-02 19:52] LABS: HCG URINE TEST NEGATIVE (NEGATIVE)
[2024-07-02 20:10] VITALS: BP 101/71; PULSE 99; RESP 20; O2SAT 94
[2024-07-02 21:07] LABS: ABO TYPING A; Antibody Screen NEGATIVE (NEGATIVE); RH TYPING POSITIVE
--- NOTE | 2024-07-03 08:49 | XRAY ---
Indication: Short of breath. Low hemoglobin. Conventional contrast enhanced CTA chest performed using 80 cc Isovue 370 contrast. 2-D sagittal and coronal reformatted images obtained. Additional 3-D reformatted images obtained using a separate workstation. Comparison: None Thoracic aorta is normal in course and caliber without aneurysm, dissection, or arteriosclerotic disease. No pulmonary embolus. Heart not enlarged. A few prominent mediastinal lymph nodes, largest subcarinal measuring 2.2 x 4.7 cm. No pathologic hilar lymphadenopathy. Lungs demonstrates mild diffuse bilateral patchy groundglass airspace disease. Tiny bilateral effusions presumed reactive. Right middle lobe subsegmental atelectasis/scarring. No suspicious pulmonary mass/nodule or consolidation. Bony thorax intact. CTA abdomen/pelvis reported separately. Impression: 1. Mild diffuse bilateral patchy groundglass airspace disease with tiny bilateral effusions. Prominent mediastinal lymph nodes presumed reactive. 2. Remaining CTA chest with contrast exam is negative.
--- NOTE | 2024-07-03 08:53 | XRAY ---
Indication: Short of breath. Low hemoglobin. Conventional contrast enhanced CTA abdomen and pelvis performed using 80 cc Isovue 370 contrast. 2-D sagittal and coronal reformatted images obtained. Additional 3-D reformatted images obtained using a separate workstation. Comparison: None CTA chest reported separately. Abdominal aorta is normal in course and caliber without aneurysm, dissection, or arteriosclerotic disease. Normal CTA appearance to the celiac, superior mesenteric, and inferior mesenteric arteries. A single renal artery supplies each kidney and appears normal. Noncontrasted stomach and bowel loops appear nonobstructed. Tiny cul-de-sac free fluid presumed physiologic from rupture/leaking cyst. No free air. Incidental tubal ligation clips, 25 cm fatty hepatomegaly, and 17 cm splenomegaly. Remaining liver, gallbladder, pancreas, spleen, adrenal glands, kidneys, ureters, bladder, and uterus are unremarkable. No pathologic retroperitoneal lymphadenopathy. Osseous structures intact with minimal levoscoliosis centered at L3. Impression: 1. CTA abdomen/pelvis with contrast is normal. 2. Tiny physiologic cul-de-sac fluid. 2. Incidental fatty hepatomegaly, splenomegaly, and levoscoliosis.
== END 2024-07-02 21:30 | disposition left against medical advice (07) ==
LOC: ED 17:10
DX: D50.9 Iron deficiency anemia, unspecified (principal); R06.00 Dyspnea, unspecified; R79.89 Other specified abnormal findings of blood chemistry; Z79.891 Long term (current) use of opiate analgesic; Z79.899 Other long term (current) drug therapy; Z72.0 Tobacco use
CPT/HCPCS: 0241U; 36415; 71275; 74174; 80053; 81025; 83735; 83880; 85025; 86850; 86900; 86901; 87040; 94640; 96365; 96367; 96374; 96375; 99284; 99291; J0456; J0696; J2405; J2919; A9270-GY

== ENCOUNTER 2024-07-03 09:50 | Observation (INO) | payer OTHER ==
[2024-07-03] MEDS ORDERED: PROTONIX 40 MG IV IV ONE (10:20)
[2024-07-03] MEDS ORDERED: ROCEPHIN 2 GM/100 ML NACL 2 GM/100 ML IVPB IV ONE (10:20)
[2024-07-03] MEDS ORDERED: DUONEB 0.5-3 MG/3 ml Neb IH ONE (10:20)
[2024-07-03] MEDS: ROCEPHIN 2 GM/100 ML NACL 2 GM/100 ML IVPB IV ONE (10:21)
[2024-07-03] MEDS: PROTONIX 40 MG IV IV ONE (10:21)
[2024-07-03] MEDS: DUONEB 0.5-3 MG/3 ml Neb IH ONE (10:26)
[2024-07-03 10:41] LABS: Absolute Neutrophil Ct (ANC) 10.71 x10^3/uL (1.56-6.13); BASOPHIL % 0.2 % (0.1-1.2); Basophil (Absolute #) 0.03 x10^3/uL (0.01-0.08); Eosinophil % 0.6 % (0.7-5.8); Eosinophil (Absolute #) 0.08 x10^3/uL (0.04-0.36); Hematocrit 21.9 % (34.1-44.9); IMMATURE GRAN # 0.27 x10^3u/L (0.001-0.031); IMMATURE GRAN % 2.1 % (0.001-0.429); Lymphocyte (Absolute #) 1.25 x10^3/uL (1.18-3.74); Lymphocytes % 9.5 % (19.3-51.7); Mean Cell Volume 61.7 fL (79.4-94.8); Mean Corpuscular Hemoglobin 16.3 pg (25.6-32.2); Mean Corpuscular Hgb Concent. 26.5 g/dL (32.2-35.5); Monocyte (Absolute #) 0.75 x10^3/uL (0.24-0.86); Monocytes % 5.7 % (4.7-12.5); NUCLEATED RBC # 0.07 x10^3u/L (0.00-0.012); NUCLEATED RBC % 0.5 % (0.00-0.2); Neutrophil % 81.9 % (34.0-71.1); Platelet Count 358 x10^3/uL (182-369); Red Blood Count 3.55 x10^6/uL (3.93-5.22); Red Cell Distribution Width 19.9 % (11.7-14.4); White Blood Count 13.1 x10^3/uL (3.98-10.04)
[2024-07-03 10:48] LABS: Hemoglobin 5.8 g/dL (11.2-15.7)
[2024-07-03 10:56] LABS: ALBUMIN 3.9 g/dL (3.5-5.0); ANION GAP 13.2 MEQ/L (5-15); BILIRUBIN,TOTAL 0.3 mg/dL (0.2-1.3); Calcium 9.2 mg/dL (8.4-10.2); Creatinine 1 0.57 mg/dL (0.52-1.04); Total Protein 7.2 g/dL (6.3-8.2)
[2024-07-03] MEDS ORDERED: Zithromax 500 MG/ 250 ML NaCl Premix 500 MG/250 ML IVPB IV ONE (11:16)
[2024-07-03] MEDS: Zithromax 500 MG/ 250 ML NaCl Premix 500 MG/250 ML IVPB IV STA (11:17)
[2024-07-03 11:32] LABS: ABO TYPING A; Antibody Screen NEGATIVE (NEGATIVE); RH TYPING POSITIVE
[2024-07-03 11:35] LABS: CROSS MATCH (PRBC) COMPATIBLE (COMPATIBLE)
[2024-07-03 11:40] LABS: CROSS MATCH (PRBC) COMPATIBLE (COMPATIBLE)
--- NOTE | 2024-07-03 11:48 | ERPHSYRPT ---
- History of Present Illness Time Seen by Provider: 07/03/24 09:56 Source: patient, family Exam Limitations: no limitations Patient Subjective Stated Complaint: pt here for abnormal labs. pt was here last night for low hgb and refused to be admitted, Triage Nursing Assessment: pt alert, arrived per wc alert, pale. resp labored with excertion, o2 sat 88%,placed on o2 at 2lnc, has occ cough, productive. Physician History: 39-year-old female with history of anxiety/depression, tobacco abuse, COPD, chronic anemia with heavy cycles presented in the ER with complains of worsening dyspnea on exertion where she can have only few steps before she has to rest to catch her breath. This has been going on for quite some time and lately getting worse. Patient was thoroughly evaluated yesterday in this ER and was found to have anemia with a hemoglobin of 6.2 and CTA chest showed bilateral airspace opacities with some effusion. Negative CTA abdomen pelvis. Patient was recommended transfusion and admission but patient left AMA. Patient reports continued years above symptoms. Denies any abdominal pain nausea or vomiting but does report having some low-grade temperature and chills. Patient reports going through multiple pads every time she has her cycle. Does report passing some clots as well. He was placed on iron before but stopped taking it because of getting GI upset. Allergies/Adverse Reactions: No Known Drug Allergies Allergy (Verified 07/03/24 10:05) Home Medications: Buprenorphine HCl/Naloxone HCl [Buprenorphn-Naloxn 2-0.5 mg Sl] 1 each SL UD 08/03/22 [History] Gabapentin 600 mg PO TID 08/03/22 [History] Quetiapine Fumarate [Seroquel] 400 mg PO DAILY 08/03/22 [History] Ropinirole 2Mg [Requip 2Mg Tab] 2 mg PO HS 08/03/22 [History] Sertraline HCl [Zoloft] 100 mg PO DAILY 07/02/24 [History] Hx Tetanus, Diphtheria Vaccination/Date Given: Yes Hx Influenza Vaccination/Date Given: No Hx Pneumococcal Vaccination/Date Given: No Immunizations Up to Date: Yes Travel Risk - International Travel Have you traveled outside of the country in past 3 weeks: No - Emerging Infectious Disease Are you exhibiting symptoms associated with any current EIDs: No Symptoms: Cough: New Onset, Shortness of Breath - Review of Systems Constitutional: Fever, Chills, Fatigue, Weakness Eyes: No Symptoms Ears, Nose, & Throat: No Symptoms Respiratory: Cough, Dyspnea, Dyspnea on Exertion ([place]), Wheezing Cardiac: Edema Abdominal/Gastrointestinal: No Symptoms Genitourinary Symptoms: No Symptoms Musculoskeletal: Arthralgias Skin: No Symptoms Neurological: No Symptoms Psychological: Anxiety, Depression Endocrine: No Symptoms Hematologic/Lymphatic: Anemia Immunological/Allergic: No Symptoms - Past Medical History Pertinent Past Medical History: Yes Neurological History: No Pertinent History ENT History: No Pertinent History Cardiac History: No Pertinent History Respiratory History: No Pertinent History Endocrine Medical History: No Pertinent History Musculoskeletal History: No Pertinent History GI Medical History: No Pertinent History History: No Pertinent History Psycho-Social History: Anxiety, Depression, Other Female Reproductive Disorders: No Pertinent History Other Medical History: PTSD - Past Surgical History Past Surgical History: Yes Neuro Surgical History: No Pertinent History Cardiac: No Pertinent History Respiratory: No Pertinent History Gastrointestinal: No Pertinent History Genitourinary: No Pertinent History Musculoskeletal: No Pertinent History Female Surgical History: Tubal Ligation - Female History Hx Last Menstrual Period: 06/07/2024 Hx Now: No - Social History Smoking Status: Current every day smoker How long have you smoked: 18 Exposure to second hand smoke: Yes Drug Use: marijuana Patient Lives Alone: No - Social Determinants of Health Will the patient participate in the screening: Yes Do you worry about a steady place to live?: No Do you have any problems with any of the following?: No known problems In the past 12 months,have you had to go without utilities?: No Transportation Issues: No Has anyone in your support network made you feel unsafe?: No Have you or anyone in your house had to go without enough: No - Nursing Vital Signs Nursing Vital Signs: Initial Vital Signs Blood Pressure 134/76 07/03/24 10:02 O2 Sat by Pulse Oximetry 94 L 07/03/24 10:02 Pain Scale Pain Intensity 5 - Physical Exam General Appearance: no apparent distress, alert Eye Exam: PERRL/EOMI Ears, Nose, Throat Exam: hearing grossly normal, normal ENT inspection, normal pharynx Neck Exam: normal inspection, non-tender, supple, full range of motion Respiratory Exam: diminished breath sounds, accessory muscle use, crackles/rales, wheezing Cardiovascular/Chest Exam: normal heart sounds, regular rate/rhythm Abdominal/Gastrointestinal Exam: soft, normal bowel sounds, No tenderness Extremity Exam: non-tender, normal range of motion Neurologic Exam: alert, oriented x 3, cooperative, 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 Skin Exam: normal color SpO2 Interpretation: O2 applied SpO2: 97 O2 Delivery: Nasal Cannula - Course EKG Interpreted by Me: RATE ([id number]), Sinus Rhythm, NORMAL AXIS, NORMAL INTERVALS, NORMAL QRS Ordered Tests: Active Orders 24 hr Category Date Time Status EKG-ER Only STAT Care 07/03/24 10:11 Active IV Insertion STAT Care 07/03/24 10:11 Active Oxygen-ED Only Nasal Cannula 2 lpm Care 07/03/24 11:02 Active CBC W DIFF Stat Lab 07/03/24 10:30 Completed CMP Stat Lab 07/03/24 10:30 Completed Lactic Acid Stat Lab 07/03/24 10:38 Completed Occult Blood-Fecal Screen (Diagnostic) [OB-FECAL SCREEN Lab 07/03/24 Ordered ] Stat TROPONIN Q4H Lab 07/03/24 10:30 Completed TROPONIN Q4H Lab 07/03/24 14:15 Ordered TROPONIN Q4H Lab 07/03/24 18:15 Ordered Transfer Order Routine Transfer 07/03/24 Ordered Medication Summary Discontinued Medications Generic Name Dose Route Start Last Admin Trade Name Carlosq PRN Reason Stop Dose Admin Albuterol/Ipratropium 3 ml 07/03/24 10:13 07/03/24 10:26 Ipratropium/Albuterol Sulfate 3 Ml Ampul.Neb IH 07/03/24 10:14 3 ml STAT ONE Administration Albuterol/Ipratropium Confirm 07/03/24 10:20 Ipratropium/Albuterol Sulfate 3 Ml Ampul.Neb Administered 07/03/24 10:21 Dose 3 ml IH .STK-MED ONE Azithromycin 500 mg in 250 mls @ 250 mls/hr 07/03/24 10:12 07/03/24 11:17 Zithromax 500 Mg/ 250 Ml Nacl Premix IV 07/03/24 11:11 250 mls/hr STAT STA 250 mls/hr Administration Ceftriaxone Sodium 2 gm in 100 mls @ 200 mls/hr 07/03/24 10:12 07/03/24 11:00 Rocephin 2 Gm/100 Ml Nacl IV 07/03/24 10:41 Infused STAT ONE Infusion Ceftriaxone Sodium Confirm 07/03/24 10:20 Rocephin 2 Gm/100 Ml Nacl Administered 07/03/24 10:21 Dose 2 gm in 100 mls @ ud IV .STK-MED ONE Azithromycin Confirm 07/03/24 11:16 Zithromax 500 Mg/ 250 Ml Nacl Premix Administered 07/03/24 11:17 Dose 500 mg in 250 mls @ ud IV .STK-MED ONE Ondansetron HCl 4 mg 07/03/24 11:59 Ondansetron Hcl 4 Mg/2 Ml Vial IV 07/03/24 12:00 STAT ONE Pantoprazole Sodium 80 mg 07/03/24 10:11 07/03/24 10:21 Pantoprazole 40 Mg Vial IV 07/03/24 10:12 80 mg STAT ONE Administration Pantoprazole Sodium Confirm 07/03/24 10:20 Pantoprazole 40 Mg Vial Administered 07/03/24 10:21 Dose 80 mg IV .[facility] ONE Lab/Rad Data: Laboratory Result Diagrams 07/03/24 10:30 07/03/24 10:30 Laboratory Results 07/03/24 07/03/24 07/03/24 Range/Units 10:38 10:30 10:30 WBC (3.98-10.04) x10^3/uL RBC (3.93-5.22) x10^6/uL Hgb (11.2-15.7) g/dL Hct (34.1-44.9) % MCV (79.4-94.8) fL MCH (25.6-32.2) pg MCHC (32.2-35.5) g/dL RDW (11.7-14.4) % Plt Count (182-369) x10^3/uL MPV (9.4-12.3) fL Gran % (34.0-71.1) % Immature Gran % (Auto) (0.001-0.429) % Nucleat RBC Rel Count (0.00-0.2) % Eos # (Auto) (0.04-0.36) x10^3/uL Immature Gran # (Auto) (0.001-0.031) x10^3u/L Absolute Lymphs (auto) (1.18-3.74) x10^3/uL Absolute Monos (auto) (0.24-0.86) x10^3/uL Absolute Nucleated RBC (0.00-0.012) x10^3u/L Lymphocytes % (19.3-51.7) % Monocytes % (4.7-12.5) % Eosinophils % (0.7-5.8) % Basophils % (0.1-1.2) % Absolute Granulocytes (1.56-6.13) x10^3/uL Basophils # (0.01-0.08) x10^3/uL Sodium 135 (135-145) mmol/L Potassium 4.0 (3.5-5.1) mmol/L Chloride 101 (98-107) mmol/L Carbon Dioxide 25 (22-30) mmol/L Anion Gap 13.2 (5-15) MEQ/L BUN 11 (7-17) mg/dL Creatinine 0.57 (0.52-1.04) mg/dL Estimated GFR 117.0 ML/MIN Glucose 137 H (74-106) mg/dL Lactic Acid 1.7 (0.4-2.0) Calcium 9.2 (8.4-10.2) mg/dL Total Bilirubin 0.30 (0.2-1.3) mg/dL AST 68 H (14-36) U/L ALT 60 H (0-35) U/L Alkaline Phosphatase 105 (38-126) U/L Troponin I 0.020 (0.000-0.033) ng/mL Serum Total Protein 7.2 (6.3-8.2) g/dL Albumin 3.9 (3.5-5.0) g/dL ABO Group Rh Factor Antibody Screen (NEGATIVE) Crossmatch (COMPATIBLE) 07/03/24 07/03/24 07/03/24 Range/Units 10:30 10:10 10:10 WBC 13.1 H (3.98-10.04) x10^3/uL RBC 3.55 L (3.93-5.22) x10^6/uL Hgb 5.8 L* (11.2-15.7) g/dL Hct 21.9 L (34.1-44.9) % MCV 61.7 L (79.4-94.8) fL MCH 16.3 L (25.6-32.2) pg MCHC 26.5 L (32.2-35.5) g/dL RDW 19.9 H (11.7-14.4) % Plt Count 358 (182-369) x10^3/uL MPV 9.0 L (9.4-12.3) fL Gran % 81.9 H (34.0-71.1) % Immature Gran % (Auto) 2.1 H (0.001-0.429) % Nucleat RBC Rel Count 0.5 H (0.00-0.2) % Eos # (Auto) 0.08 (0.04-0.36) x10^3/uL Immature Gran # (Auto) 0.27 H (0.001-0.031) x10^3u/L Absolute Lymphs (auto) 1.25 (1.18-3.74) x10^3/uL Absolute Monos (auto) 0.75 (0.24-0.86) x10^3/uL Absolute Nucleated RBC 0.07 H (0.00-0.012) x10^3u/L Lymphocytes % 9.5 L (19.3-51.7) % Monocytes % 5.7 (4.7-12.5) % Eosinophils % 0.6 L (0.7-5.8) % Basophils % 0.2 (0.1-1.2) % Absolute Granulocytes 10.71 H (1.56-6.13) x10^3/uL Basophils # 0.03 (0.01-0.08) x10^3/uL Sodium (135-145) mmol/L Potassium (3.5-5.1) mmol/L Chloride (98-107) mmol/L Carbon Dioxide (22-30) mmol/L Anion Gap (5-15) MEQ/L BUN (7-17) mg/dL Creatinine (0.52-1.04) mg/dL Estimated GFR ML/MIN Glucose (74-106) mg/dL Lactic Acid (0.4-2.0) Calcium (8.4-10.2) mg/dL Total Bilirubin (0.2-1.3) mg/dL AST (14-36) U/L ALT (0-35) U/L Alkaline Phosphatase (38-126) U/L Troponin I (0.000-0.033) ng/mL Serum Total Protein (6.3-8.2) g/dL Albumin (3.5-5.0) g/dL ABO Group A Rh Factor POSITIVE Antibody Screen NEGATIVE (NEGATIVE) Crossmatch COMPATIBLE COMPATIBLE (COMPATIBLE) - Progress Progress: re-examined Air Movement: fair Progress Note: 07/03/24 11:44 39-year-old female who was thoroughly evaluated yesterday for dyspnea on exertion and was found out to have anemia with a hemoglobin of 6.2 and also paulina ateral pneumonia presented back with worsening of symptoms. Patient room air oxygen in low 80s, placed on 3 L oxygen and improved in mid 90s. Patient is given DuoNeb, EKG is normal sinus rhythm with no acute ischemic changes. Negative initial troponin. She is given Protonix as she has a questionable history of dark stool. Repeat hemoglobin is 5.8. Discussed with patient and in detail about transfusion, went over risk and benefits and they both agreed to go ahead with it. She would be transfused 2 units of blood. Chemistries fairly unremarkable with normal BUN and creatinine. He is also given dose of Rocephin and Zithromax for her pneumonia based on CTA yesterday. Feeling better on reevaluation after DuoNeb. Patient needs transfusion, further workup for anemia and would benefit with admission. I have discussed with Dr. Luna, reviewed history, workup and agreed with admission here. Discussed the results of workup with patient and family and plan of admission which they understand and agree. Patient's history, exam findings, review of medical data, interpretation of workup today and before, intervention based on current workup places patient case to be one of the higher level complexity. Blood Culture(s) Obtained: Yes Antibiotics given: Yes Discussed with : Other (Dr. Luna hospitalist) Will see patient in: hospital (observation) Counseled pt/family regarding: lab results, diagnosis, need for follow-up, rad results, smoking cessation Medical Desision Making - Independent Historian Additional History obtained from: Spouse - Discussion of managment Care discussed with:: hospitalist Reviewed:: Test results Agreed on:: Treatment plan, place in obs Will see patient: in hospital - Diagnostic Testing Diagnostic test were ordered, analyzed, and reviewed by me: Yes Radiological Interpretation: Reviewed by me - Risk of complications The pt has a mod risk of morbidity or mortality based on: Need for prescription drug management The pt has a high risk of morbidity or mortality based on: Decision regarding hospitilization or escalation of hosp level of care - Departure Departure Disposition: Observation Clinical Impression: Symptomatic anemia, Bilateral pneumonia, Acute hypoxic respiratory failure Condition: Fair Critical Care Time: No Referrals: ABELARDO KOCH, PLANNER INTERN [Primary Care Provider] - Follow up/PCP as directed
[2024-07-03] MEDS: Zofran 4 MG/2 ML VIAL IV ONE (12:06)
[2024-07-03] MEDS ORDERED: Zofran 4 MG/2 ML VIAL ONE (12:06)
[2024-07-03 13:01] LABS: Slide Review 1 YES
[2024-07-03] MEDS ORDERED: Sodium Chloride 0.9% 1000 ML 1,000 ML ONE (13:02)
[2024-07-03] MEDS: Sodium Chloride 0.9% 1000 ML 1,000 ML IV SCH (13:18)
[2024-07-03] MEDS ORDERED: HUMALOG SQ PRN (13:33)
[2024-07-03] MEDS ORDERED: DUONEB 0.5-3 MG/3 ml Neb IH PRN (13:33)
--- NOTE | 2024-07-03 13:34 | PCM.HP ---
History of Present Illness - Chief Complaint Chief Complaint: sob/fevers Date: 07/03/24 History of Present Illness: is a 39 year old female with a pmhx of DMII and anxiety/depression/PTSD who presented initially to the ED 07/02/24 with complaints of progressive shortness of breath, subjective fever/chills, and weakness. Patient was worked up in ED with CTA showing bilateral airspace opacities with tiny bilateral effusions and hgb of 6.2. Patient left AMA. Patient is back today with worsening of symptoms and now agreeable to admission. She states her shortness of breath has been going on for several months now but got worse over this past weekend. She states she checked her spo2 level at home and it showed her at 74%. She has been struggling with normal daily activities and can only walk short distances before getting short of breath and needing to sit down. She reports a productive cough with initially green sputum but now is thick and white. She does have extremely heavy periods saturating multiple pads with large clots. She has never had a blood transfusion before but her PCP has told her she was iron deficient and started her on oral iron. She was unable to tolerate it due to GI upset (diarrhea). Upon arrival to ED, vitals stable. Patient is requiring 2L of oxygen - RA at baseline. CTA as discussed above showing bilateral groundglass opacities and tiny bilateral effusions. CT abdomen negative for acute findings. Lab findings remarkable for leukocytosis with WBC at 13.1, Hgb at 5.8, and elevated AST 68, and ALT 60. Of note, respiratory viral panel negative. Labs reviewed from ED visit 07/02/24 showing BNP of 5110. - Review of Systems Constitutional: Fever, Chills, Weakness Eyes: No Symptoms Ears, Nose, & Throat: No Symptoms Respiratory: Cough, Short Of Breath Cardiac: No Symptoms Abdominal/Gastrointestinal: Nausea, Vomiting Genitourinary Symptoms: Hematuria Musculoskeletal: No Symptoms Skin: No Symptoms Neurological: No Symptoms Psychological: Depression Endocrine: No Symptoms Hematologic/Lymphatic: Anemia Immunological/Allergic: No Symptoms Medications & Allergies Home Medications: Home Medication List Buprenorphine HCl/Naloxone HCl [Buprenorphn-Naloxn 2-0.5 mg Sl] 1 each SL BID 08/03/22 [History Confirmed 07/03/24] Gabapentin 600 mg PO BID 08/03/22 [History Confirmed 07/03/24] Quetiapine Fumarate [Seroquel] 300 mg PO DAILY 08/03/22 [History Confirmed 07/03/24] Ropinirole 2Mg [Requip 2Mg Tab] 2 mg PO HS 08/03/22 [History Confirmed 07/03/24] Sertraline HCl [Zoloft] 100 mg PO DAILY 07/02/24 [History Confirmed 07/03/24] Allergies/Adverse Reactions: Allergies Allergy/AdvReac Type Severity Reaction Status Date / Time No Known Drug Allergies Allergy Verified 07/03/24 12:25 - Past Medical History Past Medical History: Yes Neurological History: No Pertinent History ENT History: No Pertinent History Cardiac History: No Pertinent History Respiratory History: Pneumonia Endocrine Medical History: Diabetes Type II Musculoskelatal History: No Pertinent History GI Medical History: GERD History: No Pertinent History Pyscho-Social History: Anxiety, Depression, Other Reproductive Disorders: No Pertinent History Comment: PTSD - Female History Hx Last Menstrual Period: 06/07/2024 Are you now?: No - Past Surgical History Past Surgical History: Yes Neuro Surgical History: No Pertinent History Cardiac History: No Pertinent History Respiratory Surgery: No Pertinent History GI Surgical History: No Pertinent History Genitourinary Surgical Hx: No Pertinent History Musculskeletal Surgical Hx: No Pertinent History Female Surgical History: Tubal Ligation - Social History Smoking Status: Current every day smoker How long have you smoked: 18 Exposure to second hand smoke: Yes Alcohol: None Drug Use: marijuana - Social Determinants of Health Will the patient participate in the screening: Yes Do you worry about a steady place to live?: No Do you have any problems with any of the following?: No known problems In the past 12 months,have you had to go without utilities?: No Have you or anyone in your house had to go without enough: No Transportation Issues: No Has anyone in your support network made you feel unsafe?: No - Physical Exam Vital Signs: Vital Signs - 24 hr Temp Pulse Resp BP BP Pulse Ox 07/03/24 12:30 97.8 F 82 20 134/67 92 L 07/03/24 12:12 97 07/03/24 12:00 100 H 22 113/75 96 07/03/24 11:31 96 H 23 122/61 95 07/03/24 11:00 82 20 120/74 97 07/03/24 10:50 90 17 124/73 96 07/03/24 10:43 84 18 98 07/03/24 10:12 97.0 F 80 18 134/75 98 07/03/24 10:02 134/76 94 L General Appearance: no apparent distress Neurologic Exam: alert, oriented x 3, cooperative Eye Exam: PERRL/EOMI Ears, Nose, Throat Exam: normal ENT inspection Neck Exam: normal inspection Respiratory Exam: crackles/rales, wheezing Cardiovascular Exam: regular rate/rhythm, normal heart sounds Gastrointestinal/Abdomen Exam: soft, normal bowel sounds Pelvic Exam: not done Rectal Exam: deferred Back Exam: normal inspection Extremity Exam: normal inspection Skin Exam: pale Results - Labs Lab/Micro Results: Lab Results-Last 24 Hours 07/03/24 07/03/24 07/03/24 Range/Units 10:10 10:10 10:30 WBC 13.1 H (3.98-10.04) x10^3/uL RBC 3.55 L (3.93-5.22) x10^6/uL Hgb 5.8 L* (11.2-15.7) g/dL Hct 21.9 L (34.1-44.9) % MCV 61.7 L (79.4-94.8) fL MCH 16.3 L (25.6-32.2) pg MCHC 26.5 L (32.2-35.5) g/dL RDW 19.9 H (11.7-14.4) % Plt Count 358 (182-369) x10^3/uL MPV 9.0 L (9.4-12.3) fL Gran % 81.9 H (34.0-71.1) % Immature Gran % (Auto) 2.1 H (0.001-0.429) % Nucleat RBC Rel Count 0.5 H (0.00-0.2) % Eos # (Auto) 0.08 (0.04-0.36) x10^3/uL Immature Gran # (Auto) 0.27 H (0.001-0.031) x10^3u/L Absolute Lymphs (auto) 1.25 (1.18-3.74) x10^3/uL Absolute Monos (auto) 0.75 (0.24-0.86) x10^3/uL Absolute Nucleated RBC 0.07 H (0.00-0.012) x10^3u/L Lymphocytes % 9.5 L (19.3-51.7) % Monocytes % 5.7 (4.7-12.5) % Eosinophils % 0.6 L (0.7-5.8) % Basophils % 0.2 (0.1-1.2) % Absolute Granulocytes 10.71 H (1.56-6.13) x10^3/uL Basophils # 0.03 (0.01-0.08) x10^3/uL Sodium (135-145) mmol/L Potassium (3.5-5.1) mmol/L Chloride (98-107) mmol/L Carbon Dioxide (22-30) mmol/L Anion Gap (5-15) MEQ/L BUN (7-17) mg/dL Creatinine (0.52-1.04) mg/dL Estimated GFR ML/MIN Glucose (74-106) mg/dL Lactic Acid (0.4-2.0) Calcium (8.4-10.2) mg/dL Total Bilirubin (0.2-1.3) mg/dL AST (14-36) U/L ALT (0-35) U/L Alkaline Phosphatase (38-126) U/L Troponin I (0.000-0.033) ng/mL Serum Total Protein (6.3-8.2) g/dL Albumin (3.5-5.0) g/dL Slides for Path Review YES ABO Group A Rh Factor POSITIVE Antibody Screen NEGATIVE (NEGATIVE) Crossmatch COMPATIBLE COMPATIBLE (COMPATIBLE) 07/03/24 07/03/24 07/03/24 Range/Units 10:30 10:30 10:38 WBC (3.98-10.04) x10^3/uL RBC (3.93-5.22) x10^6/uL Hgb (11.2-15.7) g/dL Hct (34.1-44.9) % MCV (79.4-94.8) fL MCH (25.6-32.2) pg MCHC (32.2-35.5) g/dL RDW (11.7-14.4) % Plt Count (182-369) x10^3/uL MPV (9.4-12.3) fL Gran % (34.0-71.1) % Immature Gran % (Auto) (0.001-0.429) % Nucleat RBC Rel Count (0.00-0.2) % Eos # (Auto) (0.04-0.36) x10^3/uL Immature Gran # (Auto) (0.001-0.031) x10^3u/L Absolute Lymphs (auto) (1.18-3.74) x10^3/uL Absolute Monos (auto) (0.24-0.86) x10^3/uL Absolute Nucleated RBC (0.00-0.012) x10^3u/L Lymphocytes % (19.3-51.7) % Monocytes % (4.7-12.5) % Eosinophils % (0.7-5.8) % Basophils % (0.1-1.2) % Absolute Granulocytes (1.56-6.13) x10^3/uL Basophils # (0.01-0.08) x10^3/uL Sodium 135 (135-145) mmol/L Potassium 4.0 (3.5-5.1) mmol/L Chloride 101 (98-107) mmol/L Carbon Dioxide 25 (22-30) mmol/L Anion Gap 13.2 (5-15) MEQ/L BUN 11 (7-17) mg/dL Creatinine 0.57 (0.52-1.04) mg/dL Estimated GFR 117.0 ML/MIN Glucose 137 H (74-106) mg/dL Lactic Acid 1.7 (0.4-2.0) Calcium 9.2 (8.4-10.2) mg/dL Total Bilirubin 0.30 (0.2-1.3) mg/dL AST 68 H (14-36) U/L ALT 60 H (0-35) U/L Alkaline Phosphatase 105 (38-126) U/L Troponin I 0.020 (0.000-0.033) ng/mL Serum Total Protein 7.2 (6.3-8.2) g/dL Albumin 3.9 (3.5-5.0) g/dL Slides for Path Review ABO Group Rh Factor Antibody Screen (NEGATIVE) Crossmatch (COMPATIBLE) - Other Procedures and Tests Respiratory Therapy 07/03/24 12:24 Oxygen Nasal Cannula 3 lpm Respiratory Therapy Consult ONCE Assessment/Plan (1) Acute hypoxic respiratory failure Current Visit: Yes Status: Acute Assessment & Plan: -secondary to bilateral pneumonia -CTA confirmed -supplemental oxygen with spo2 goal >92% - RA at baseline on 2L now -RT eval - Nebs/bronchodilator -solumedrol -procal -bcult -ceftriaxone/azith started in ED, continue Code(s): J96.01 - ACUTE RESPIRATORY FAILURE WITH HYPOXIA (2) Bilateral pneumonia Current Visit: Yes Status: Acute Assessment & Plan: -see ARF Code(s): J18.9 - PNEUMONIA, UNSPECIFIED ORGANISM (3) Symptomatic anemia Current Visit: Yes Status: Acute Assessment & Plan: -Hgb at 5.8 -add iron studies -2 units LPRBC - CBC 1 hour post -occult stools Code(s): D64.9 - ANEMIA, UNSPECIFIED (4) Diabetes mellitus Current Visit: Yes Status: Acute Assessment & Plan: -ADA diet -SSI -not on home meds - states she was supposed to start ozempic but has not -accuchecks ACHS -A1c Code(s): E11.9 - TYPE 2 DIABETES MELLITUS WITHOUT COMPLICATIONS (5) Depression Current Visit: Yes Status: Acute Assessment & Plan: -continue home meds VTE: hold anticoag due to anemia - bilateral scd -PPI : protonix dispo: 1-2 days Code(s): F32.A - DEPRESSION, UNSPECIFIED
[2024-07-03] MEDS: TYLENOL 325 MG PO PRN (14:03)
[2024-07-03] MEDS: Nicoderm CQ 21 MG TOP SCH (14:04)
[2024-07-03 14:39] LABS: Iron 22 ug/dL (37-170); Iron Saturation 4 % (20-39); TIBC 497 ug/dL (265-462)
[2024-07-03] MEDS ORDERED: MEDICATION INTERVENTION MC SCH (15:30)
[2024-07-03 15:37] LABS: Ferritin 17.3 ng/mL (6.24-137); Folate (Folic Acid) 4.52 ng/mL (2.76 - >20); PROCALCITONIN 0.141 ng/mL (0.030-0.080)
[2024-07-03] MEDS: solu-MEDROL 40 MG, Sterile H2O 10 ml 1 ML IV SCH (16:47)
[2024-07-03] MEDS: Zofran 4 MG/2 ML VIAL IV PRN (16:59)
[2024-07-03] MEDS: ZOLOFT 50 MG TABLET PO SCH (17:08)
[2024-07-03] MEDS: Venofer 100 MG/5 ML*** 200 MG in Sodium Chloride 0.9% 100 ML IV SCH (20:15)
[2024-07-03 21:19] LABS: Hematocrit 27.8 % (34.1-44.9)
[2024-07-03 21:21] LABS: Hemoglobin 7.8 g/dL (11.2-15.7)
[2024-07-03] MEDS: Seroquel 100 MG PO SCH (21:46)
[2024-07-03] MEDS: NEURONTIN PO SCH (21:46)
[2024-07-03] MEDS: REQUIP 2MG TAB PO SCH (21:46)
[2024-07-03] MEDS ORDERED: BUPRENORPHINE HCL SL SCH (22:00)
[2024-07-03] MEDS ORDERED: [UNRECOGNIZED DRUG - OTHER] SL SCH (22:00)
[2024-07-03] MEDS ORDERED: NALOXONE HCL SL SCH (22:00)
--- NOTE | 2024-07-04 05:11 | PCM.NOTE ---
Date and Time: 07/04/24 0510 Subjective Assessment: is a 39 year old female with a pmhx of DMII and anxiety/depression/PTSD who presented initially to the ED 07/02/24 with complaints of progressive shortness of breath, subjective fever/chills, and weakness. Patient was worked up in ED with CTA showing bilateral airspace opacities with tiny bilateral effusions and hgb of 6.2. Patient left AMA. Patient is back today with worsening of symptoms and now agreeable to admission. She states her shortness of breath has been going on for several months now but got worse over this past weekend. She states she checked her spo2 level at home and it showed her at 74%. She has been struggling with normal daily activities and can only walk short distances before getting short of breath and needing to sit down. She reports a productive cough with initially green sputum but now is thick and white. She does have extremely heavy periods saturating multiple pads with large clots. She has never had a blood transfusion before but her PCP has told her she was iron deficient and started her on oral iron. She was unable to tolerate it due to GI upset (diarrhea). Upon arrival to ED, vitals stable. Patient is requiring 2L of oxygen - RA at baseline. CTA as discussed above showing bilateral groundglass opacities and tiny bilateral effusions. CT abdomen neg ative for acute findings. Lab findings remarkable for leukocytosis with WBC at 13.1, Hgb at 5.8, and elevated AST 68, and ALT 60. Of note, respiratory viral panel negative. Labs reviewed from ED visit 07/02/24 showing BNP of 5110. Objective Data Vital Signs: Vital Signs - 24 hr Temp Pulse Resp BP BP Pulse Ox 07/04/24 03:52 97.1 F 62 18 143/84 95 07/04/24 00:00 97.1 F 64 17 119/69 96 07/03/24 20:00 97.8 F 69 16 127/67 92 L 07/03/24 19:34 80 16 92 L 07/03/24 18:00 97.8 F 80 20 156/95 93 L 07/03/24 13:36 86 20 92 L 07/03/24 13:00 97.8 F 82 20 134/67 92 L 07/03/24 12:30 97.8 F 82 20 134/67 92 L 07/03/24 12:12 97 07/03/24 12:00 100 H 22 113/75 96 07/03/24 11:31 96 H 23 122/61 95 07/03/24 11:00 82 20 120/74 97 07/03/24 10:50 90 17 124/73 96 07/03/24 10:43 84 18 98 07/03/24 10:12 97.0 F 80 18 134/75 98 07/03/24 10:02 134/76 94 L Pain Assessment - Last Documented Pain Intensity 5 Pain Scale Used 0-10 Pain Scale Intake and Output: Intake & Output 07/01/24 07/02/24 07/03/24 07/04/24 11:59 11:59 11:59 11:59 Intake Total 240 Balance 240 Weight 104.4 kg 104 kg Lab Results: Lab Results-Last 24 Hours 07/03/24 07/03/24 07/03/24 Range/Units 10:10 10:10 10:30 WBC 13.1 H (3.98-10.04) x10^3/uL RBC 3.55 L (3.93-5.22) x10^6/uL Hgb 5.8 L* (11.2-15.7) g/dL Hct 21.9 L (34.1-44.9) % MCV 61.7 L (79.4-94.8) fL MCH 16.3 L (25.6-32.2) pg MCHC 26.5 L (32.2-35.5) g/dL RDW 19.9 H (11.7-14.4) % Plt Count 358 (182-369) x10^3/uL MPV 9.0 L (9.4-12.3) fL Gran % 81.9 H (34.0-71.1) % Immature Gran % (Auto) 2.1 H (0.001-0.429) % Nucleat RBC Rel Count 0.5 H (0.00-0.2) % Eos # (Auto) 0.08 (0.04-0.36) x10^3/uL Immature Gran # (Auto) 0.27 H (0.001-0.031) x10^3u/L Absolute Lymphs (auto) 1.25 (1.18-3.74) x10^3/uL Absolute Monos (auto) 0.75 (0.24-0.86) x10^3/uL Absolute Nucleated RBC 0.07 H (0.00-0.012) x10^3u/L Lymphocytes % 9.5 L (19.3-51.7) % Monocytes % 5.7 (4.7-12.5) % Eosinophils % 0.6 L (0.7-5.8) % Basophils % 0.2 (0.1-1.2) % Absolute Granulocytes 10.71 H (1.56-6.13) x10^3/uL Basophils # 0.03 (0.01-0.08) x10^3/uL Sodium (135-145) mmol/L Potassium (3.5-5.1) mmol/L Chloride (98-107) mmol/L Carbon Dioxide (22-30) mmol/L Anion Gap (5-15) MEQ/L BUN (7-17) mg/dL Creatinine (0.52-1.04) mg/dL Estimated GFR ML/MIN Glucose (74-106) mg/dL POC Glucometer (74 to 106) mg/dL Hemoglobin A1c (4.5-6.0) % Lactic Acid (0.4-2.0) Calcium (8.4-10.2) mg/dL Iron (37-170) ug/dL TIBC (265-462) ug/dL Iron Saturation (20-39) % Ferritin (6.24-137) ng/mL Total Bilirubin (0.2-1.3) mg/dL AST (14-36) U/L ALT (0-35) U/L Alkaline Phosphatase (38-126) U/L Troponin I (0.000-0.033) ng/mL Serum Total Protein (6.3-8.2) g/dL Albumin (3.5-5.0) g/dL Vitamin B12 (239-931) pg/mL Folic Acid (2.76 - >20) ng/mL Procalcitonin (0.030-0.080) ng/mL Slides for Path Review YES ABO Group A Rh Factor POSITIVE Antibody Screen NEGATIVE (NEGATIVE) Crossmatch COMPATIBLE COMPATIBLE (COMPATIBLE) 07/03/24 07/03/24 07/03/24 Range/Units 10:30 10:30 10:30 WBC (3.98-10.04) x10^3/uL RBC (3.93-5.22) x10^6/uL Hgb (11.2-15.7) g/dL Hct (34.1-44.9) % MCV (79.4-94.8) fL MCH (25.6-32.2) pg MCHC (32.2-35.5) g/dL RDW (11.7-14.4) % Plt Count (182-369) x10^3/uL MPV (9.4-12.3) fL Gran % (34.0-71.1) % Immature Gran % (Auto) (0.001-0.429) % Nucleat RBC Rel Count (0.00-0.2) % Eos # (Auto) (0.04-0.36) x10^3/uL Immature Gran # (Auto) (0.001-0.031) x10^3u/L Absolute Lymphs (auto) (1.18-3.74) x10^3/uL Absolute Monos (auto) (0.24-0.86) x10^3/uL Absolute Nucleated RBC (0.00-0.012) x10^3u/L Lymphocytes % (19.3-51.7) % Monocytes % (4.7-12.5) % Eosinophils % (0.7-5.8) % Basophils % (0.1-1.2) % Absolute Granulocytes (1.56-6.13) x10^3/uL Basophils # (0.01-0.08) x10^3/uL Sodium 135 (135-145) mmol/L Potassium 4.0 (3.5-5.1) mmol/L Chloride 101 (98-107) mmol/L Carbon Dioxide 25 (22-30) mmol/L Anion Gap 13.2 (5-15) MEQ/L BUN 11 (7-17) mg/dL Creatinine 0.57 (0.52-1.04) mg/dL Estimated GFR 117.0 ML/MIN Glucose 137 H (74-106) mg/dL POC Glucometer (74 to 106) mg/dL Hemoglobin A1c 5.54 (4.5-6.0) % Lactic Acid (0.4-2.0) Calcium 9.2 (8.4-10.2) mg/dL Iron (37-170) ug/dL TIBC (265-462) ug/dL Iron Saturation (20-39) % Ferritin (6.24-137) ng/mL Total Bilirubin 0.30 (0.2-1.3) mg/dL AST 68 H (14-36) U/L ALT 60 H (0-35) U/L Alkaline Phosphatase 105 (38-126) U/L Troponin I 0.020 (0.000-0.033) ng/mL Serum Total Protein 7.2 (6.3-8.2) g/dL Albumin 3.9 (3.5-5.0) g/dL Vitamin B12 (239-931) pg/mL Folic Acid (2.76 - >20) ng/mL Procalcitonin (0.030-0.080) ng/mL Slides for Path Review ABO Group Rh Factor Antibody Screen (NEGATIVE) Crossmatch (COMPATIBLE) 07/03/24 07/03/24 07/03/24 Range/Units 10:30 10:30 10:38 WBC (3.98-10.04) x10^3/uL RBC (3.93-5.22) x10^6/uL Hgb (11.2-15.7) g/dL Hct (34.1-44.9) % MCV (79.4-94.8) fL MCH (25.6-32.2) pg MCHC (32.2-35.5) g/dL RDW (11.7-14.4) % Plt Count (182-369) x10^3/uL MPV (9.4-12.3) fL Gran % (34.0-71.1) % Immature Gran % (Auto) (0.001-0.429) % Nucleat RBC Rel Count (0.00-0.2) % Eos # (Auto) (0.04-0.36) x10^3/uL Immature Gran # (Auto) (0.001-0.031) x10^3u/L Absolute Lymphs (auto) (1.18-3.74) x10^3/uL Absolute Monos (auto) (0.24-0.86) x10^3/uL Absolute Nucleated RBC (0.00-0.012) x10^3u/L Lymphocytes % (19.3-51.7) % Monocytes % (4.7-12.5) % Eosinophils % (0.7-5.8) % Basophils % (0.1-1.2) % Absolute Granulocytes (1.56-6.13) x10^3/uL Basophils # (0.01-0.08) x10^3/uL Sodium (135-145) mmol/L Potassium (3.5-5.1) mmol/L Chloride (98-107) mmol/L Carbon Dioxide (22-30) mmol/L Anion Gap (5-15) MEQ/L BUN (7-17) mg/dL Creatinine (0.52-1.04) mg/dL Estimated GFR ML/MIN Glucose (74-106) mg/dL POC Glucometer (74 to 106) mg/dL Hemoglobin A1c (4.5-6.0) % Lactic Acid 1.7 (0.4-2.0) Calcium (8.4-10.2) mg/dL Iron 22 L (37-170) ug/dL TIBC 497 H (265-462) ug/dL Iron Saturation 4 L (20-39) % Ferritin 17.3 (6.24-137) ng/mL Total Bilirubin (0.2-1.3) mg/dL AST (14-36) U/L ALT (0-35) U/L Alkaline Phosphatase (38-126) U/L Troponin I (0.000-0.033) ng/mL Serum Total Protein (6.3-8.2) g/dL Albumin (3.5-5.0) g/dL Vitamin B12 417 (239-931) pg/mL Folic Acid 4.52 (2.76 - >20) ng/mL Procalcitonin 0.141 H (0.030-0.080) ng/mL Slides for Path Review ABO Group Rh Factor Antibody Screen (NEGATIVE) Crossmatch (COMPATIBLE) 07/03/24 07/03/24 07/03/24 Range/Units 15:05 16:41 18:01 WBC (3.98-10.04) x10^3/uL RBC (3.93-5.22) x10^6/uL Hgb (11.2-15.7) g/dL Hct (34.1-44.9) % MCV (79.4-94.8) fL MCH (25.6-32.2) pg MCHC (32.2-35.5) g/dL RDW (11.7-14.4) % Plt Count (182-369) x10^3/uL MPV (9.4-12.3) fL Gran % (34.0-71.1) % Immature Gran % (Auto) (0.001-0.429) % Nucleat RBC Rel Count (0.00-0.2) % Eos # (Auto) (0.04-0.36) x10^3/uL Immature Gran # (Auto) (0.001-0.031) x10^3u/L Absolute Lymphs (auto) (1.18-3.74) x10^3/uL Absolute Monos (auto) (0.24-0.86) x10^3/uL Absolute Nucleated RBC (0.00-0.012) x10^3u/L Lymphocytes % (19.3-51.7) % Monocytes % (4.7-12.5) % Eosinophils % (0.7-5.8) % Basophils % (0.1-1.2) % Absolute Granulocytes (1.56-6.13) x10^3/uL Basophils # (0.01-0.08) x10^3/uL Sodium (135-145) mmol/L Potassium (3.5-5.1) mmol/L Chloride (98-107) mmol/L Carbon Dioxide (22-30) mmol/L Anion Gap (5-15) MEQ/L BUN (7-17) mg/dL Creatinine (0.52-1.04) mg/dL Estimated GFR ML/MIN Glucose (74-106) mg/dL POC Glucometer 94 (74 to 106) mg/dL Hemoglobin A1c (4.5-6.0) % Lactic Acid (0.4-2.0) Calcium (8.4-10.2) mg/dL Iron (37-170) ug/dL TIBC (265-462) ug/dL Iron Saturation (20-39) % Ferritin (6.24-137) ng/mL Total Bilirubin (0.2-1.3) mg/dL AST (14-36) U/L ALT (0-35) U/L Alkaline Phosphatase (38-126) U/L Troponin I 0.013 0.013 (0.000-0.033) ng/mL Serum Total Protein (6.3-8.2) g/dL Albumin (3.5-5.0) g/dL Vitamin B12 (239-931) pg/mL Folic Acid (2.76 - >20) ng/mL Procalcitonin (0.030-0.080) ng/mL Slides for Path Review ABO Group Rh Factor Antibody Screen (NEGATIVE) Crossmatch (COMPATIBLE) 07/03/24 07/03/24 Range/Units 20:57 21:05 WBC (3.98-10.04) x10^3/uL RBC (3.93-5.22) x10^6/uL Hgb 7.8 L D (11.2-15.7) g/dL Hct 27.8 L (34.1-44.9) % MCV (79.4-94.8) fL MCH (25.6-32.2) pg MCHC (32.2-35.5) g/dL RDW (11.7-14.4) % Plt Count (182-369) x10^3/uL MPV (9.4-12.3) fL Gran % (34.0-71.1) % Immature Gran % (Auto) (0.001-0.429) % Nucleat RBC Rel Count (0.00-0.2) % Eos # (Auto) (0.04-0.36) x10^3/uL Immature Gran # (Auto) (0.001-0.031) x10^3u/L Absolute Lymphs (auto) (1.18-3.74) x10^3/uL Absolute Monos (auto) (0.24-0.86) x10^3/uL Absolute Nucleated RBC (0.00-0.012) x10^3u/L Lymphocytes % (19.3-51.7) % Monocytes % (4.7-12.5) % Eosinophils % (0.7-5.8) % Basophils % (0.1-1.2) % Absolute Granulocytes (1.56-6.13) x10^3/uL Basophils # (0.01-0.08) x10^3/uL Sodium (135-145) mmol/L Potassium (3.5-5.1) mmol/L Chloride (98-107) mmol/L Carbon Dioxide (22-30) mmol/L Anion Gap (5-15) MEQ/L BUN (7-17) mg/dL Creatinine (0.52-1.04) mg/dL Estimated GFR ML/MIN Glucose (74-106) mg/dL POC Glucometer 166 H (74 to 106) mg/dL Hemoglobin A1c (4.5-6.0) % Lactic Acid (0.4-2.0) Calcium (8.4-10.2) mg/dL Iron (37-170) ug/dL TIBC (265-462) ug/dL Iron Saturation (20-39) % Ferritin (6.24-137) ng/mL Total Bilirubin (0.2-1.3) mg/dL AST (14-36) U/L ALT (0-35) U/L Alkaline Phosphatase (38-126) U/L Troponin I (0.000-0.033) ng/mL Serum Total Protein (6.3-8.2) g/dL Albumin (3.5-5.0) g/dL Vitamin B12 (239-931) pg/mL Folic Acid (2.76 - >20) ng/mL Procalcitonin (0.030-0.080) ng/mL Slides for Path Review ABO Group Rh Factor Antibody Screen (NEGATIVE) Crossmatch (COMPATIBLE) Radiology Exams: Radiology Procedures Category Date Time Status ECHO W/2D AND DOPPLER [US] Routine Exams 07/03/24 13:35 Taken Multi-Disciplinary Progress Notes: Multi-Disciplinary Progress Notes 07/03/24 15:27 Pharmacy Note by Marcos Topete Please be aware of possible drug interaction with Seroquel and Zithromax. May prolong QT interval. Initialized on 07/03/24 15:27 - END OF NOTE Assessment/Plan (1) Acute hypoxic respiratory failure Current Visit: Yes Status: Acute Assessment & Plan: -secondary to bilateral pneumonia -CTA confirmed -supplemental oxygen with spo2 goal >92% - RA at baseline on 2L now -RT eval - Nebs/bronchodilator -solumedrol -procal -bcult -ceftriaxone/azith started in ED, continue Code(s): J96.01 - ACUTE RESPIRATORY FAILURE WITH HYPOXIA (2) Bilateral pneumonia Current Visit: Yes Status: Acute Assessment & Plan: -see ARF 07/04: -WBC trending down -sputum cult/ blood culture pending Code(s): J18.9 - PNEUMONIA, UNSPECIFIED ORGANISM (3) Symptomatic anemia Current Visit: Yes Status: Acute Assessment & Plan: -Hgb at 5.8 -add iron studies -2 units LPRBC - CBC 1 hour post -occult stools 07/04: -s/p 2 units - hgb stable at 8.0 -iron studies showing saturation at 4% - venofer started Code(s): D64.9 - ANEMIA, UNSPECIFIED (4) Diabetes mellitus Current Visit: Yes Status: Acute Assessment & Plan: -ADA diet -SSI -not on home meds - states she was supposed to start ozempic but has not -accuchecks ACHS -A1c Code(s): E11.9 - TYPE 2 DIABETES MELLITUS WITHOUT COMPLICATIONS (5) Depression Current Visit: Yes Status: Acute Assessment & Plan: -continue home meds VTE: hold anticoag due to anemia - bilateral scd -PPI : protonix dispo: 1-2 days Code(s): F32.A - DEPRESSION, UNSPECIFIED Code(s): J96.01 - ACUTE RESPIRATORY FAILURE WITH HYPOXIA (2) Bilateral pneumonia Current Visit: Yes Status: Acute Code(s): J18.9 - PNEUMONIA, UNSPECIFIED ORGANISM (3) Symptomatic anemia Current Visit: Yes Status: Acute Code(s): D64.9 - ANEMIA, UNSPECIFIED (4) Diabetes mellitus Current Visit: Yes Status: Acute Code(s): E11.9 - TYPE 2 DIABETES MELLITUS WITHOUT COMPLICATIONS (5) Depression Current Visit: Yes Status: Acute Code(s): F32.A - DEPRESSION, UNSPECIFIED
[2024-07-04 05:29] LABS: Absolute Neutrophil Ct (ANC) 10.78 x10^3/uL (1.56-6.13); BASOPHIL % 0.2 % (0.1-1.2); Basophil (Absolute #) 0.02 x10^3/uL (0.01-0.08); Eosinophil % 0.1 % (0.7-5.8); Eosinophil (Absolute #) 0.01 x10^3/uL (0.04-0.36); Hematocrit 28.3 % (34.1-44.9); IMMATURE GRAN # 0.36 x10^3u/L (0.001-0.031); IMMATURE GRAN % 2.8 % (0.001-0.429); Lymphocyte (Absolute #) 1.06 x10^3/uL (1.18-3.74); Lymphocytes % 8.3 % (19.3-51.7); Mean Cell Volume 66.3 fL (79.4-94.8); Mean Corpuscular Hemoglobin 18.7 pg (25.6-32.2); Mean Corpuscular Hgb Concent. 28.3 g/dL (32.2-35.5); Mean Platelet Volume 9.3 fL (9.4-12.3); Monocyte (Absolute #) 0.53 x10^3/uL (0.24-0.86); Monocytes % 4.2 % (4.7-12.5); NUCLEATED RBC # 0.11 x10^3u/L (0.00-0.012); NUCLEATED RBC % 0.9 % (0.00-0.2); Neutrophil % 84.4 % (34.0-71.1); Platelet Count 360 x10^3/uL (182-369); Red Blood Count 4.27 x10^6/uL (3.93-5.22); Red Cell Distribution Width 22.9 % (11.7-14.4); White Blood Count 12.8 x10^3/uL (3.98-10.04)
[2024-07-04 05:58] LABS: ALBUMIN 3.8 g/dL (3.5-5.0); ANION GAP 12.2 MEQ/L (5-15); BILIRUBIN,TOTAL 0.5 mg/dL (0.2-1.3); Calcium 8.8 mg/dL (8.4-10.2); Creatinine 1 0.63 mg/dL (0.52-1.04); EST GLOMERULAR FILTRATION RATE 114.2 ML/MIN; Potassium 4.5 mmol/L (3.5-5.1); Total Protein 7.2 g/dL (6.3-8.2)
[2024-07-04 07:30] LABS: Slide Review 1 YES
[2024-07-04] MEDS: ROCEPHIN 1 GM / 100 ML NaCl 1 GM/100 ML IVPB IV SCH (10:03)
[2024-07-04] MEDS: PROTONIX 40 MG IV IV SCH (10:04)
--- NOTE | 2024-07-04 10:11 | PCM.DS ---
Discharge Summary Date of Admission: 07/03/24 12:15 Date of Discharge: 07/04/24 Admitting Physician: JB GONZÁLES MD Primary Care Provider: ABELARDO KOCH Allergies Allergies No Known Drug Allergies Allergy (Verified 07/03/24 12:25) Hospital Summary - Hospital Course Hospital Course: is a 39 year old female with a pmhx of DMII and anxiety/dep ression/PTSD who presented initially to the ED 07/02/24 with complaints of progressive shortness of breath, subjective fever/chills, and weakness. Patient was worked up in ED with CTA showing bilateral airspace opacities with tiny bilateral effusions and hgb of 6.2. Patient left AMA. Patient is back today with worsening of symptoms and now agreeable to admission. She states her shortness of breath has been going on for several months now but got worse over this past weekend. She states she checked her spo2 level at home and it showed her at 74%. She has been struggling with normal daily activities and can only walk short distances before getting short of breath and needing to sit down. She reports a productive cough with initially green sputum but now is thick and white. She does have extremely heavy periods saturating multiple pads with large clots. She has never had a blood transfusion before but her PCP has told her she was iron deficient and started her on oral iron. She was unable to tolerate it due to GI upset (diarrhea). Upon arrival to ED, vitals stable. Patient is requiring 2L of oxygen - RA at baseline. CTA as discussed above showing bilateral groundglass opacities and tiny bilateral effusions. CT abdomen negative for acute findings. Lab findings remarkable for leukocytosis with WBC at 13.1, Hgb at 5.8, and elevated AST 68, and ALT 60. Of note, respiratory viral panel negative. Labs reviewed from ED visit 07/02/24 showing BNP of 5110. Dyspnea has improved. Hemoglobin improved s/p transfusion. Recommended follow up with hematology for anemia evaluation. Venofer x 1 dose given due to iron sat of 4%. Patient states she is unable to tolerate po iron. Patient is requesting discharge home today. We will see if she qualifies for home oxygen. She will need to finish course of cefpodoxime/azith/medrol dose pack. Will make appt with PCP and Dr. Quinn. Discharge Note New Diagnosis: Symptomatic anemia/pneumonia New Medications: cefpodoxime/azith/prednisone/nebs Follow Up: PCP/Dr. Quinn Latest Assessment & Plan (1) Acute hypoxic respiratory failure Current Visit: Yes Status: Acute Assessment & Plan: -secondary to bilateral pneumonia -CTA confirmed -supplemental oxygen with spo2 goal >92% - RA at baseline on 2L now -RT eval - Nebs/bronchodilator -solumedrol -procal -bcult -ceftriaxone/azith started in ED, continue Code(s): J96.01 - ACUTE RESPIRATORY FAILURE WITH HYPOXIA (2) Bilateral pneumonia Current Visit: Yes Status: Acute Assessment & Plan: -see ARF 07/04: -WBC trending down -sputum cult/ blood culture pending Code(s): J18.9 - PNEUMONIA, UNSPECIFIED ORGANISM (3) Symptomatic anemia Current Visit: Yes Status: Acute Assessment & Plan: -Hgb at 5.8 -add iron studies -2 units LPRBC - CBC 1 hour post -occult stools 07/04: -s/p 2 units - hgb stable at 8.0 -iron studies showing saturation at 4% - venofer started Code(s): D64.9 - ANEMIA, UNSPECIFIED (4) Diabetes mellitus Current Visit: Yes Status: Acute Assessment & Plan: -ADA diet -SSI -not on home meds - states she was supposed to start ozempic but has not -accuchecks ACHS -A1c Code(s): E11.9 - TYPE 2 DIABETES MELLITUS WITHOUT COMPLICATIONS (5) Depression Current Visit: Yes Status: Acute Assessment & Plan: -continue home meds I spent 35 minutes [id number] with the patient on the day of discharge performing discharge exam, discussing hospital stay and discharge instructions with patient and caregivers, preparation of discharge records, prescriptions & referral forms and addressing any questions/concerns the patient had as documented above. - Vitals & Intake/Output Vital Signs: Vital Signs Temperature 97.9 F 07/04/24 07:52 Pulse Rate 65 07/04/24 07:52 Respiratory Rate 18 07/04/24 07:52 Blood Pressure 136/79 07/04/24 07:52 O2 Sat by Pulse Oximetry 91 L 07/04/24 07:52 Intake & Output: Intake & Output 07/01/24 07/02/24 07/03/24 07/04/24 11:59 11:59 11:59 11:59 Intake Total 620 Balance 620 Weight 104.4 kg 104 kg - Lab Result Diagrams: 07/04/24 05:20 07/04/24 05:20 Lab Results-Last 24 Hrs: Lab Results-Last 24 Hours 07/03/24 07/03/24 07/03/24 Range/Units 10:10 10:10 10:30 WBC 13.1 H (3.98-10.04) x10^3/uL RBC 3.55 L (3.93-5.22) x10^6/uL Hgb 5.8 L* (11.2-15.7) g/dL Hct 21.9 L (34.1-44.9) % MCV 61.7 L (79.4-94.8) fL MCH 16.3 L (25.6-32.2) pg MCHC 26.5 L (32.2-35.5) g/dL RDW 19.9 H (11.7-14.4) % Plt Count 358 (182-369) x10^3/uL MPV 9.0 L (9.4-12.3) fL Gran % 81.9 H (34.0-71.1) % Immature Gran % (Auto) 2.1 H (0.001-0.429) % Nucleat RBC Rel Count 0.5 H (0.00-0.2) % Eos # (Auto) 0.08 (0.04-0.36) x10^3/uL Immature Gran # (Auto) 0.27 H (0.001-0.031) x10^3u/L Absolute Lymphs (auto) 1.25 (1.18-3.74) x10^3/uL Absolute Monos (auto) 0.75 (0.24-0.86) x10^3/uL Absolute Nucleated RBC 0.07 H (0.00-0.012) x10^3u/L Lymphocytes % 9.5 L (19.3-51.7) % Monocytes % 5.7 (4.7-12.5) % Eosinophils % 0.6 L (0.7-5.8) % Basophils % 0.2 (0.1-1.2) % Absolute Granulocytes 10.71 H (1.56-6.13) x10^3/uL Basophils # 0.03 (0.01-0.08) x10^3/uL Sodium (135-145) mmol/L Potassium (3.5-5.1) mmol/L Chloride (98-107) mmol/L Carbon Dioxide (22-30) mmol/L Anion Gap (5-15) MEQ/L BUN (7-17) mg/dL Creatinine (0.52-1.04) mg/dL Estimated GFR ML/MIN Glucose (74-106) mg/dL POC Glucometer (74 to 106) mg/dL Hemoglobin A1c (4.5-6.0) % Lactic Acid (0.4-2.0) Calcium (8.4-10.2) mg/dL Iron (37-170) ug/dL TIBC (265-462) ug/dL Iron Saturation (20-39) % Ferritin (6.24-137) ng/mL Total Bilirubin (0.2-1.3) mg/dL AST (14-36) U/L ALT (0-35) U/L Alkaline Phosphatase (38-126) U/L Troponin I (0.000-0.033) ng/mL Serum Total Protein (6.3-8.2) g/dL Albumin (3.5-5.0) g/dL Vitamin B12 (239-931) pg/mL Folic Acid (2.76 - >20) ng/mL Procalcitonin (0.030-0.080) ng/mL Slides for Path Review YES ABO Group A Rh Factor POSITIVE Antibody Screen NEGATIVE (NEGATIVE) Crossmatch COMPATIBLE COMPATIBLE (COMPATIBLE) 07/03/24 07/03/24 07/03/24 Range/Units 10:30 10:30 10:30 WBC (3.98-10.04) x10^3/uL RBC (3.93-5.22) x10^6/uL Hgb (11.2-15.7) g/dL Hct (34.1-44.9) % MCV (79.4-94.8) fL MCH (25.6-32.2) pg MCHC (32.2-35.5) g/dL RDW (11.7-14.4) % Plt Count (182-369) x10^3/uL MPV (9.4-12.3) fL Gran % (34.0-71.1) % Immature Gran % (Auto) (0.001-0.429) % Nucleat RBC Rel Count (0.00-0.2) % Eos # (Auto) (0.04-0.36) x10^3/uL Immature Gran # (Auto) (0.001-0.031) x10^3u/L Absolute Lymphs (auto) (1.18-3.74) x10^3/uL Absolute Monos (auto) (0.24-0.86) x10^3/uL Absolute Nucleated RBC (0.00-0.012) x10^3u/L Lymphocytes % (19.3-51.7) % Monocytes % (4.7-12.5) % Eosinophils % (0.7-5.8) % Basophils % (0.1-1.2) % Absolute Granulocytes (1.56-6.13) x10^3/uL Basophils # (0.01-0.08) x10^3/uL Sodium 135 (135-145) mmol/L Potassium 4.0 (3.5-5.1) mmol/L Chloride 101 (98-107) mmol/L Carbon Dioxide 25 (22-30) mmol/L Anion Gap 13.2 (5-15) MEQ/L BUN 11 (7-17) mg/dL Creatinine 0.57 (0.52-1.04) mg/dL Estimated GFR 117.0 ML/MIN Glucose 137 H (74-106) mg/dL POC Glucometer (74 to 106) mg/dL Hemoglobin A1c 5.54 (4.5-6.0) % Lactic Acid (0.4-2.0) Calcium 9.2 (8.4-10.2) mg/dL Iron (37-170) ug/dL TIBC (265-462) ug/dL Iron Saturation (20-39) % Ferritin (6.24-137) ng/mL Total Bilirubin 0.30 (0.2-1.3) mg/dL AST 68 H (14-36) U/L ALT 60 H (0-35) U/L Alkaline Phosphatase 105 (38-126) U/L Troponin I 0.020 (0.000-0.033) ng/mL Serum Total Protein 7.2 (6.3-8.2) g/dL Albumin 3.9 (3.5-5.0) g/dL Vitamin B12 (239-931) pg/mL Folic Acid (2.76 - >20) ng/mL Procalcitonin (0.030-0.080) ng/mL Slides for Path Review ABO Group Rh Factor Antibody Screen (NEGATIVE) Crossmatch (COMPATIBLE) 07/03/24 07/03/24 07/03/24 Range/Units 10:30 10:30 10:38 WBC (3.98-10.04) x10^3/uL RBC (3.93-5.22) x10^6/uL Hgb (11.2-15.7) g/dL Hct (34.1-44.9) % MCV (79.4-94.8) fL MCH (25.6-32.2) pg MCHC (32.2-35.5) g/dL RDW (11.7-14.4) % Plt Count (182-369) x10^3/uL MPV (9.4-12.3) fL Gran % (34.0-71.1) % Immature Gran % (Auto) (0.001-0.429) % Nucleat RBC Rel Count (0.00-0.2) % Eos # (Auto) (0.04-0.36) x10^3/uL Immature Gran # (Auto) (0.001-0.031) x10^3u/L Absolute Lymphs (auto) (1.18-3.74) x10^3/uL Absolute Monos (auto) (0.24-0.86) x10^3/uL Absolute Nucleated RBC (0.00-0.012) x10^3u/L Lymphocytes % (19.3-51.7) % Monocytes % (4.7-12.5) % Eosinophils % (0.7-5.8) % Basophils % (0.1-1.2) % Absolute Granulocytes (1.56-6.13) x10^3/uL Basophils # (0.01-0.08) x10^3/uL Sodium (135-145) mmol/L Potassium (3.5-5.1) mmol/L Chloride (98-107) mmol/L Carbon Dioxide (22-30) mmol/L Anion Gap (5-15) MEQ/L BUN (7-17) mg/dL Creatinine (0.52-1.04) mg/dL Estimated GFR ML/MIN Glucose (74-106) mg/dL POC Glucometer (74 to 106) mg/dL Hemoglobin A1c (4.5-6.0) % Lactic Acid 1.7 (0.4-2.0) Calcium (8.4-10.2) mg/dL Iron 22 L (37-170) ug/dL TIBC 497 H (265-462) ug/dL Iron Saturation 4 L (20-39) % Ferritin 17.3 (6.24-137) ng/mL Total Bilirubin (0.2-1.3) mg/dL AST (14-36) U/L ALT (0-35) U/L Alkaline Phosphatase (38-126) U/L Troponin I (0.000-0.033) ng/mL Serum Total Protein (6.3-8.2) g/dL Albumin (3.5-5.0) g/dL Vitamin B12 417 (239-931) pg/mL Folic Acid 4.52 (2.76 - >20) ng/mL Procalcitonin 0.141 H (0.030-0.080) ng/mL Slides for Path Review ABO Group Rh Factor Antibody Screen (NEGATIVE) Crossmatch (COMPATIBLE) 07/03/24 07/03/24 07/03/24 Range/Units 15:05 16:41 18:01 WBC (3.98-10.04) x10^3/uL RBC (3.93-5.22) x10^6/uL Hgb (11.2-15.7) g/dL Hct (34.1-44.9) % MCV (79.4-94.8) fL MCH (25.6-32.2) pg MCHC (32.2-35.5) g/dL RDW (11.7-14.4) % Plt Count (182-369) x10^3/uL MPV (9.4-12.3) fL Gran % (34.0-71.1) % Immature Gran % (Auto) (0.001-0.429) % Nucleat RBC Rel Count (0.00-0.2) % Eos # (Auto) (0.04-0.36) x10^3/uL Immature Gran # (Auto) (0.001-0.031) x10^3u/L Absolute Lymphs (auto) (1.18-3.74) x10^3/uL Absolute Monos (auto) (0.24-0.86) x10^3/uL Absolute Nucleated RBC (0.00-0.012) x10^3u/L Lymphocytes % (19.3-51.7) % Monocytes % (4.7-12.5) % Eosinophils % (0.7-5.8) % Basophils % (0.1-1.2) % Absolute Granulocytes (1.56-6.13) x10^3/uL Basophils # (0.01-0.08) x10^3/uL Sodium (135-145) mmol/L Potassium (3.5-5.1) mmol/L Chloride (98-107) mmol/L Carbon Dioxide (22-30) mmol/L Anion Gap (5-15) MEQ/L BUN (7-17) mg/dL Creatinine (0.52-1.04) mg/dL Estimated GFR ML/MIN Glucose (74-106) mg/dL POC Glucometer 94 (74 to 106) mg/dL Hemoglobin A1c (4.5-6.0) % Lactic Acid (0.4-2.0) Calcium (8.4-10.2) mg/dL Iron (37-170) ug/dL TIBC (265-462) ug/dL Iron Saturation (20-39) % Ferritin (6.24-137) ng/mL Total Bilirubin (0.2-1.3) mg/dL AST (14-36) U/L ALT (0-35) U/L Alkaline Phosphatase (38-126) U/L Troponin I 0.013 0.013 (0.000-0.033) ng/mL Serum Total Protein (6.3-8.2) g/dL Albumin (3.5-5.0) g/dL Vitamin B12 (239-931) pg/mL Folic Acid (2.76 - >20) ng/mL Procalcitonin (0.030-0.080) ng/mL Slides for Path Review ABO Group Rh Factor Antibody Screen (NEGATIVE) Crossmatch (COMPATIBLE) 07/03/24 07/03/24 07/04/24 Range/Units 20:57 21:05 05:20 WBC 12.8 H (3.98-10.04) x10^3/uL RBC 4.27 (3.93-5.22) x10^6/uL Hgb 7.8 L D 8.0 L (11.2-15.7) g/dL Hct 27.8 L 28.3 L (34.1-44.9) % MCV 66.3 L D (79.4-94.8) fL MCH 18.7 L (25.6-32.2) pg MCHC 28.3 L (32.2-35.5) g/dL RDW 22.9 H (11.7-14.4) % Plt Count 360 (182-369) x10^3/uL MPV 9.3 L (9.4-12.3) fL Gran % 84.4 H (34.0-71.1) % Immature Gran % (Auto) 2.8 H (0.001-0.429) % Nucleat RBC Rel Count 0.9 H (0.00-0.2) % Eos # (Auto) 0.01 L (0.04-0.36) x10^3/uL Immature Gran # (Auto) 0.36 H (0.001-0.031) x10^3u/L Absolute Lymphs (auto) 1.06 L (1.18-3.74) x10^3/uL Absolute Monos (auto) 0.53 (0.24-0.86) x10^3/uL Absolute Nucleated RBC 0.11 H (0.00-0.012) x10^3u/L Lymphocytes % 8.3 L (19.3-51.7) % Monocytes % 4.2 L (4.7-12.5) % Eosinophils % 0.1 L (0.7-5.8) % Basophils % 0.2 (0.1-1.2) % Absolute Granulocytes 10.78 H (1.56-6.13) x10^3/uL Basophils # 0.02 (0.01-0.08) x10^3/uL Sodium (135-145) mmol/L Potassium (3.5-5.1) mmol/L Chloride (98-107) mmol/L Carbon Dioxide (22-30) mmol/L Anion Gap (5-15) MEQ/L BUN (7-17) mg/dL Creatinine (0.52-1.04) mg/dL Estimated GFR ML/MIN Glucose (74-106) mg/dL POC Glucometer 166 H (74 to 106) mg/dL Hemoglobin A1c (4.5-6.0) % Lactic Acid (0.4-2.0) Calcium (8.4-10.2) mg/dL Iron (37-170) ug/dL TIBC (265-462) ug/dL Iron Saturation (20-39) % Ferritin (6.24-137) ng/mL Total Bilirubin (0.2-1.3) mg/dL AST (14-36) U/L ALT (0-35) U/L Alkaline Phosphatase (38-126) U/L Troponin I (0.000-0.033) ng/mL Serum Total Protein (6.3-8.2) g/dL Albumin (3.5-5.0) g/dL Vitamin B12 (239-931) pg/mL Folic Acid (2.76 - >20) ng/mL Procalcitonin (0.030-0.080) ng/mL Slides for Path Review YES ABO Group Rh Factor Antibody Screen (NEGATIVE) Crossmatch (COMPATIBLE) 07/04/24 07/04/24 Range/Units 05:20 07:32 WBC (3.98-10.04) x10^3/uL RBC (3.93-5.22) x10^6/uL Hgb (11.2-15.7) g/dL Hct (34.1-44.9) % MCV (79.4-94.8) fL MCH (25.6-32.2) pg MCHC (32.2-35.5) g/dL RDW (11.7-14.4) % Plt Count (182-369) x10^3/uL MPV (9.4-12.3) fL Gran % (34.0-71.1) % Immature Gran % (Auto) (0.001-0.429) % Nucleat RBC Rel Count (0.00-0.2) % Eos # (Auto) (0.04-0.36) x10^3/uL Immature Gran # (Auto) (0.001-0.031) x10^3u/L Absolute Lymphs (auto) (1.18-3.74) x10^3/uL Absolute Monos (auto) (0.24-0.86) x10^3/uL Absolute Nucleated RBC (0.00-0.012) x10^3u/L Lymphocytes % (19.3-51.7) % Monocytes % (4.7-12.5) % Eosinophils % (0.7-5.8) % Basophils % (0.1-1.2) % Absolute Granulocytes (1.56-6.13) x10^3/uL Basophils # (0.01-0.08) x10^3/uL Sodium 138 (135-145) mmol/L Potassium 4.5 (3.5-5.1) mmol/L Chloride 102 (98-107) mmol/L Carbon Dioxide 29 (22-30) mmol/L Anion Gap 12.2 (5-15) MEQ/L BUN 12 (7-17) mg/dL Creatinine 0.63 (0.52-1.04) mg/dL Estimated GFR 114.2 ML/MIN Glucose 141 H (74-106) mg/dL POC Glucometer 137 H (74 to 106) mg/dL Hemoglobin A1c (4.5-6.0) % Lactic Acid (0.4-2.0) Calcium 8.8 (8.4-10.2) mg/dL Iron (37-170) ug/dL TIBC (265-462) ug/dL Iron Saturation (20-39) % Ferritin (6.24-137) ng/mL Total Bilirubin 0.50 (0.2-1.3) mg/dL AST 94 H (14-36) U/L ALT 97 H (0-35) U/L Alkaline Phosphatase 111 (38-126) U/L Troponin I (0.000-0.033) ng/mL Serum Total Protein 7.2 (6.3-8.2) g/dL Albumin 3.8 (3.5-5.0) g/dL Vitamin B12 (239-931) pg/mL Folic Acid (2.76 - >20) ng/mL Procalcitonin (0.030-0.080) ng/mL Slides for Path Review ABO Group Rh Factor Antibody Screen (NEGATIVE) Crossmatch (COMPATIBLE) Micro Results-Entire Visit: Accuchecks Date 07/04/24 Date 07/04/24 Date 07/03/24 Time 21:00 - Radiology Exams Ordered Rad Exams-Entire Visit: Radiology Procedures Category Date Time Status ECHO W/2D AND DOPPLER [US] Routine Exams 07/03/24 13:35 Taken - Procedures and Test Procedures and Tests throughout Hospitalization: Therapy Orders & Screens 07/03/24 12:24 Oxygen Nasal Cannula 3 lpm Comment: Respiratory Therapy Consult ONCE Comment: Reason For Exam: 07/03/24 13:36 RT Screen per Nursing Assess ONCE Comment: Protocol Order Physician Instructions: Greater than 3 points order RT Admission Screen Reason For Exam: Triggered on Admission Diagnosis: sob/fevers Diagnosis: sob/fevers Pneumonia: Yes Home O2: No Asthma: No CHF: No Home CPAP/BIPAP: No Home Nebs/MDI: Yes Total Points: 8 Smoking Cessation Education ONCE Comment: Diagnosis: sob/fevers Smoking Status: Current every day smoker How long have you smoked: 18 Have you smoked in the past 12 months: Yes Approximately how many cigarettes per day: 1 PACK Do you dip or chew tobacco: No 07/04/24 08:30 Qualify for Home Oxygen TODAY Comment: Diagnosis: sob/fevers Discharge Exam General Appearance: no apparent distress Neurologic Exam: alert, oriented x 3, cooperative Eye Exam: PERRL Ears, Nose, Throat Exam: normal ENT inspection Neck Exam: normal inspection Respiratory Exam: diminished breath sounds, crackles/rales Cardiovascular Exam: regular rate/rhythm, normal heart sounds Gastrointestinal/Abdomen Exam: soft, normal bowel sounds Pelvic Exam: deferred Rectal Exam: deferred Extremity Exam: normal inspection Skin Exam: pale Final Diagnosis/Problem List - Final Discharge Diagnosis/Problem (1) Acute hypoxic respiratory failure Current Visit: Yes Status: Acute Code(s): J96.01 - ACUTE RESPIRATORY FAILURE WITH HYPOXIA (2) Bilateral pneumonia Current Visit: Yes Status: Acute Code(s): J18.9 - PNEUMONIA, UNSPECIFIED ORGANISM (3) Symptomatic anemia Current Visit: Yes Status: Resolved Code(s): D64.9 - ANEMIA, UNSPECIFIED (4) Diabetes mellitus Current Visit: Yes Status: Chronic Code(s): E11.9 - TYPE 2 DIABETES MELLITUS WITHOUT COMPLICATIONS (5) Depression Current Visit: Yes Status: Chronic Code(s): F32.A - DEPRESSION, UNSPECIFIED - Discharge Disposition: Home, Self-Care Condition: Stable Prescriptions: New Azithromycin 250 mg PO DAILY 4 Days #4 tablet Albuterol/Ipratropium 3ml Neb* [DUONEB 0.5-3 MG/3 ml Neb] 3 ml IH Q6HPRN PRN 30 Days #120 amp PRN Reason: Shortness Of Breath/Wheezing Methylprednisolone Packet [Medrol Dosepack] 4 mg PO UD #30 packet Nicotine 21 mg [Nicoderm CQ 21 MG] 21 mg TOP DAILY 42 Days #42 patch PANTOPRAZOLE 40 mg Tablet [Protonix 40MG Tablet] 40 mg PO QAM 14 Days #14 tab Cefpodoxime Proxetil 200 mg [Vantin 200 mg] 200 mg PO BID 10 Days #20 tablet Continue Quetiapine Fumarate [Seroquel] 300 mg PO DAILY Buprenorphine HCl/Naloxone HCl [Buprenorphine-Nalox 2-0.5MG Tb] 1 each SL BID Gabapentin 600 mg PO BID Ropinirole 2Mg [Requip 2Mg Tab] 2 mg PO HS Sertraline HCl [Zoloft] 100 mg PO DAILY Chlordiazepoxide HCl 25 mg [Librium 25 mg] 25 mg PO UD Follow up with: ABELARDO KOCH NP [Primary Care Provider] - ARACELI QUINN MD [NON-STAFF PHY W/O PRIVILEGES] -
[2024-07-04] MEDS: Zithromax 500 MG/ 250 ML NaCl Premix 500 MG/250 ML IVPB IV SCH (11:01)
[2024-07-04 11:58] VITALS: BP 140/75; PULSE 61; RESP 16; TEMP 97.8; O2SAT 90
== END 2024-07-04 14:30 | disposition home or self-care (01) ==
LOC: ED 09:50 → MED SURG 12:15
PROVIDERS: ADMIT Internal Medicine; ATTEND Internal Medicine
DX: J96.01 Acute respiratory failure with hypoxia (principal); J18.9 Pneumonia, unspecified organism; D64.9 Anemia, unspecified; E11.9 Type 2 diabetes mellitus without complications; F32.A Depression, unspecified; F17.200 Nicotine dependence, unspecified, uncomplicated; Z79.899 Other long term (current) drug therapy
CPT/HCPCS: 36000; 36415; 36430; 80053; 82607; 82728; 82746; 82947; 83036; 83540; 83550; 83605; 84145; 84484; 85014; 85018; 85025; 86850; 86900; 86901; 86922; 87040; 93005; 93306; 94640; 94760; 96365; 96374; 96375; 99285; P9016; 93268; J0456; J0696; J1756; J2405; J2919; Q3014; A9270-GY; G0378

== ENCOUNTER 2025-09-04 10:08 | Emergency (ER) | payer OTHER ==
[2025-09-04] MEDS ORDERED: Lactated Ringers 1,000 ML IV ONE (10:56)
[2025-09-04 11:46] VITALS: BP 130/80; PULSE 76; RESP 16; TEMP 97.6; O2SAT 98
== END 2025-09-04 11:52 | disposition left against medical advice (07) ==
LOC: ED 10:08
DX: R59.0 Localized enlarged lymph nodes (principal)